=== PATIENT | male | born 1980 | race Caucasian/White ===

== ENCOUNTER → 2018-01-13 12:52 | Outpatient (CLI) | payer MEDICARE, MEDICAID, SELFPAY ==
[2018-01-13 13:36] LABS: Basophils # 0.1 K/mm3 (0-0.2); Basophils % 0.7 % (0.1-2.0); Eosinophils # 0.2 K/mm3 (0.0-0.4); Eosinophils % 2.6 % (0.1-12.0); Hemoglobin 17.1 g/dL (14.1-18.0); Lymphocytes # 1.9 K/mm3 (0.7-4.5); Lymphocytes % 24.2 K/mm3 (10-50); Mean Corpuscular HGB Conc 31.7 g/dL (31.8-35.4); Mean Corpuscular Hemoglobin 30.2 pg (27.0-31.2); Mean Corpuscular Volume 95.4 fl (80-94); Monocytes # 0.5 K/mm3 (0.1-1.0); Monocytes % 6.2 % (1.7-9.3); Neutrophils # 5.2 K/mm3 (1.8-7.8); Neutrophils % 66.4 % (37.0-80.0); Platelet Count 211 K/mm3 (142-424); Red Blood Count 5.66 M/mm3 (4.60-6.20); Red Cell Distribution Width 14.3 % (11.5-17.5); White Blood Count 7.9 K/mm3 (4.8-10.8)
[2018-01-13 14:41] LABS: Alanine Aminotransferase 22 U/L (12-78); Albumin Level 4.2 gm/dL (3.4-5.0); Albumin/Globulin Ratio 1.4 (1.1-1.8); Alkaline Phosphatase 76 U/L (46-116); Anion Gap 12.9 mEq/L (5-15); Aspartate Amino Transferase 16 U/L (15-37); Bilirubin,Total 0.8 mg/dL (0.2-1.0); Blood Urea Nitrogen 9 mg/dL (7-18); Calcium 9.2 mg/dL (8.5-10.1); Carbon Dioxide 29 mmol/L (21.0-32.0); Chloride 104 mmol/L (98-107); Chol/HDL Ratio 3.6 (1-3.5); Cholesterol 135 mg/dL (140-200); Creatinine,Serum 0.68 mg/dL (0.70-1.30); Estimated Glomerular Filt Rate 130 ml/min (>60); Free T4 (Free Thyroxine) 1.21 ng/dl (0.76-1.46); GFR (African American) 157 ML/MIN (>60); Globulin 3.1 gm/dl (1.3-3.2); Glucose 103 mg/dL (74-106); HDL Cholesterol 38 mg/dL (27-67); LDL Cholesterol 75 mg/dL (0-130); Potassium 4.9 mmoL/L (3.5-5.1); Sodium 141 mmol/L (136-145); Thyroid Stimulating Hormone 1.22 uIU/ml (0.358-3.740); Total Protein,Serum 7.3 gm/dL (6.4-8.2); Triglycerides 111 mg/dL (30-200); VLDL Cholesterol 22 mg/dL (0-40)
[2018-01-13 14:46] LABS: Hemoglobin A1C 5.5 % (0.0-7.0)
== END ==
PROVIDERS: PCP Emergency Medicine; Visit Provider Psychiatry & Neurology Psychiatry
DX: F20.9 Schizophrenia, unspecified (principal); E78.4 Other hyperlipidemia; Z79.899 Other long term (current) drug therapy
CPT/HCPCS: 36415; 80053; 80061; 83036; 84439; 84443; 85025

== ENCOUNTER → 2018-04-27 12:49 | Outpatient (CLI) | payer MEDICARE, MEDICAID, SELFPAY ==
--- NOTE | 2018-04-27 12:52 | CA_ITS ---
PROCEDURE: 2-D M-mode and color Doppler study INDICATIONS FOR THE TEST: Chest pain + COPD Heart Murmur+ Tobacco Smoking+ Palpitations Fatigue Syncope Edema+ Hypertension Diabetes Mellitus Rheumatic Fever SOB+DICKERSON Obesity Hyperlipidemia Family History HD Additional History PATIENT INFORMATION HEIGHT: 70 WEIGHT:206 GENDER: Male B/P:130/80 2-D/M-MODE INTERPRETATION: 2-D MEASUREMENTS OBSERVED VALUES IN CMS Right Ventricular Dimension (RVDd) 2.3 Interventricular Septum (Thickness)(IVsd) 1.0 Left Ventricular Internal Dimensions(LVIDd) 5.5 Left Ventricular Posterior Wall (Thickness)(LVPWd) 0.7 Aortic Root 2.8 Aortic Cusp Separation 2.3 Left Atrial Dimensions (LAD) 4.0 2D 1. Left atrium is upper limit of the normal size, left ventricle is normal size, there is no concentric left ventricular hypertrophy, visually estimated ejection fraction 55% with no obvious regional wall motion abnormality. 2. The right atrium and right ventricle are normal size and contractility. 3. The aortic valve is minimally thickened and fibrosed. 4. The mitral and tricuspid valve leaflets are grossly normal. 5. The pulmonic valve is poorly visualized. 6. No significant pericardial effusion noted. DOPPLER INTERROGATION: Doppler interrogation of the aortic, mitral and tricuspid valvular presence of mild aortic, mild mitral and tricuspid regurgitation, tricuspid and jet velocity is insufficient for calculation of the right ventricular systolic pressure, diastolic parameters are inconclusive. CONCLUSION: 1. Normal left ventricular size, preserved left ventricular systolic function, visually estimated ejection fraction 55% with no obvious regional wall motion abnormality, diastolic parameters are inconclusive. 2. Mild aortic, mild mitral and tricuspid regurgitation 3. No significant pericardial effusion noted.
== END ==
PROVIDERS: PCP Emergency Medicine; Visit Provider Emergency Medicine
DX: R01.1 Cardiac murmur, unspecified (principal)
CPT/HCPCS: 93306

== ENCOUNTER 2020-12-02 05:21 | Emergency (ER) | payer MEDICARE, MEDICAID, SELFPAY ==
[2020-12-02 05:32] VITALS: BP 132/92; PULSE 104; RESP 14; TEMP 37.1; O2SAT 97; BMI 28.1
[2020-12-02 06:00] VITALS: BP 127/89; PULSE 99; RESP 18; O2SAT 95
--- NOTE | 2020-12-02 06:02 | HMH.EDUROGM ---
ED Disposition Clinical Impression: Inguinal hernia Qualifiers: Obstruction and gangrene presence: without obstruction or gangrene Laterality: bilateral Recurrence: non-recurrent Qualified Code(s): K40.20 - Bilateral inguinal hernia, without obstruction or gangrene, not specified as recurrent Disposition: Left Without Being Seen Condition on Discharge: Good Instructions: DI for Groin Hernia Additional Instructions: see surg as op Referrals: Angel Lam MD [Primary Care Provider] - - Critical Care Critical Care Time: No Attestation: On 12/02/20, the high probability of a clinically significant, sudden or life threatening deterioration of the following system(s) required my full and direct attention, intervention and personal management. The time I documented below is in addition to time spent performing reported procedures but includes the following listed in this critical care notation. Medical Decision Making - Medical Records Medical records reviewed: Yes: I reviewed the patient's medical records. - Earnest Inquiry Pt receiving controlled substance: No Vital Signs: 12/02/20 05:32 12/02/20 06:00 12/02/20 07:00 Temperature 98.8 F Temperature Source Oral Pulse Rate [Right] 104 H 99 H 95 H Respiratory Rate 14 18 17 Blood Pressure [Right Arm] 132/92 H 127/89 136/93 H Blood Pressure Mean [Right Arm] 105 101 107 Blood Pressure Source [Right Arm] Automatic Cuff Automatic Cuff Automatic Cuff Blood Pressure Position [Right Arm] Sitting Supine Sitting 02 Sat by Pulse Oximetry 97 95 97 Oxygen Delivery Method Room Air Room Air Room Air - Lab Data Lab results reviewed: Yes: I reviewed the patient's lab results. Lab Results 12/02/20 05:14: Urine Color Yellow, Urine Appearance Clear, Urine pH 6.5, Ur Specific [place] 1.010, Urine Protein Negative, Urine Glucose (UA) Negative, Urine Ketones Trace, Urine Blood Negative, Urine Nitrate Negative, Urine Bilirubin Negative, Urine Urobilinogen 1.0, Ur Leukocyte Esterase Negative, Urine WBC 3-5, Ur Squamous Epith Cells 3-5 12/02/20 06:15: WBC 11.4 H, RBC 5.56, Hgb 16.8, Hct 51.0, MCV 91.7, MCH 30.2, MCHC 32.9, RDW 14.7, Plt Count 203, MPV 8.3, Neut % (Auto) 67.4, Lymph % (Auto) 24.3, [place] % (Auto) 6.3, Eos % (Auto) 1.4, Baso % (Auto) 0.5, Neut # (Auto) 7.7, Lymph # (Auto) 2.8, [place] # (Auto) 0.7, Eos # (Auto) 0.2, Baso # (Auto) 0.1 12/02/20 06:15: Sodium 139, Potassium 4.1, Chloride 106, Carbon Dioxide 25, Anion Gap 12.1, BUN 5 L, Creatinine 0.90, Estimated Creat Clear 134, Estimated GFR 93, Est GFR ( Amer) 112, Glucose 121 H, Calcium 9.9, Total Bilirubin 0.7, AST 25, ALT 18, Alkaline Phosphatase 94, C-Reactive Protein 3.9, Total Protein 8.2, Albumin 5.0, Globulin 3.2, Albumin/Globulin Ratio 1.6 12/02/20 06:15: Plasma/Serum Alcohol < 10 Result diagrams: 12/02/20 06:15 12/02/20 06:15 Orders (Tests/Meds): ED MEDICATIONS Discontinued Medications Generic Name Dose Route Start Last Admin Trade Name Freq PRN Reason Stop Dose Admin Iopamidol 75 ml 12/02/20 07:22 12/02/20 07:22 Iopamidol-370 (76%);100ml Bottle IV 12/02/20 07:23 75 ml ONCE ONE Administration Sodium Chloride 10 ml 12/02/20 07:22 12/02/20 07:22 Sodium Chloride 0.9% 10ml Syr (Rad Only) IV 12/02/20 07:23 10 ml ONCE ONE Administration ORDERS Category Date Time Status CT abdomen pelvis w con Stat Cat Scan 12/02/20 06:11 Taken C-Reactive Protein Stat Lab 12/02/20 06:15 Results CMP [Comprehensive Metabolic Panel] Stat Lab 12/02/20 06:15 Results ESR [Erythrocyte Sedimentation Rate] Stat Lab 12/02/20 06:15 Received Procalcitonin Stat Lab 12/02/20 06:15 Received T4 (Thyroxine) Stat Lab 12/02/20 06:15 Results TSH [Thyroid Stimulating Hormone] Stat Lab 12/02/20 06:15 Results - CT Data CT Scan: Abdomen, Pelvis Time Received: 07:[address] Reviewed: Yes: I have viewed the radiologist's interpretation Preliminary Findings: Abnormal (see report ) [facility]
[2020-12-02 06:03] LABS: Microscopic, Urine URINE MICROSCOPIC (MICROSCOPIC)
--- NOTE | 2020-12-02 06:11 | CT_ITS ---
PROCEDURE: CT ABDOMEN PELVIS W CON CLINICAL INDICATION: abd pain Abdominal pain, swollen scrotum worsening COMPARISON: No exams were available for comparison TECHNIQUE: IV Contrast: 75ML Isovue 370 Oral Contrast None Axial images obtained with sagittal and coronal reformats. All CT scans at the facility use one or more dose reduction, viz: automated exposure control, ma/kV adjustment per patient size (including targeted exams where dose is matched to indication, i.e. head), or iterative reconstruction technique. FINDINGS: LOWER THORAX: Parenchymal opacity right middle lobe anteriorly and may be due to an area of scarring. There is a 13 mm subpleural nodule in the right lower lobe posteriorly. ABDOMEN & PELVIS: The liver, spleen, adrenal glands, pancreas and kidneys show no acute finding. There is a simple cyst in the left kidney at 11 mm. No renal or ureteral calculi. No hydronephrosis. Unremarkable appearing gallbladder. The bowel gas pattern is nonspecific with fluid-filled loops of small bowel with a few air-fluid levels. The bowel loops however do not appear distended. There is a mild amount of retained colonic feces. There are large bilateral inguinal hernias. The right inguinal hernia contains small bowel in the left inguinal hernia contains large bowel. Some of the bowel loops within the right inguinal hernia do contain fluid. No evidence of appendicitis or diverticulitis. Urinary bladder is decompressed. No acute bony findings. 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 Small nodes are present in the inguinal area on both sides left greater than right. There are few small retroperitoneal lymph nodes as well. IMPRESSION: 1. Large bilateral inguinal hernias containing bowel as described above. 2. No definite intestinal obstruction. The bowel gas pattern is nonspecific with some fluid-filled loops of small bowel with some scattered air-fluid levels which could be due to enteritis. 3. 13 mm pleural-based nodule in the right lower lobe. If there are no old exams for comparison then, would suggest PET-CT for further evaluation. Follow-up is recommended. Dictated by: Eric Gonzalez MD 12/02/2020 08:20 Eric Gonzalez MD in [facility] 12/02/2020 08:20
[2020-12-02 06:18] LABS: Appearance,Urine CLEAR (Clear); Bilirubin,Urine Negative (Negative); Blood, Urine Negative (Negative); Color,Urine YELLOW (Yellow); Glucose,Urine (UA) Negative (Negative); Ketones,Urine TRACE (Negative); Leukocyte Esterase,Urine Negative (Negative); Nitrate,Urine Negative (Negative); PH,Urine 6.5 (5.0-8.5); Protein,Urine Negative (Negative)
[2020-12-02 07:00] VITALS: BP 136/93; PULSE 95; RESP 17; O2SAT 97
[2020-12-02 07:32] LABS: Basophils # 0.1 K/mm3 (0-0.2); Basophils % 0.5 % (0.1-2.0); Chloride 106 mmol/L (98-107); Eosinophils # 0.2 K/mm3 (0.0-0.4); Eosinophils % 1.4 % (0.1-12.0); Hemoglobin 16.8 g/dL (14.1-18.0); Lymphocytes # 2.8 K/mm3 (0.7-4.5); Lymphocytes % 24.3 % (10-50); Mean Corpuscular HGB Conc 32.9 g/dL (31.8-35.4); Mean Corpuscular Hemoglobin 30.2 pg (27.0-31.2); Mean Corpuscular Volume 91.7 fl (80-94); Mean Platelet Volume 8.3 fl (7.4-10.4); Monocytes # 0.7 K/mm3 (0.1-1.0); Monocytes % 6.3 % (1.7-9.3); Neutrophils # 7.7 K/mm3 (1.8-7.8); Neutrophils % 67.4 % (37.0-80.0); Platelet Count 203 K/mm3 (142-424); Potassium 4.1 mmoL/L (3.5-5.1); Red Blood Count 5.56 M/mm3 (4.60-6.20); Red Cell Distribution Width 14.7 % (11.5-17.5); Sodium 139 mmol/L (136-145); White Blood Count 11.4 K/mm3 (4.8-10.8)
[2020-12-02 07:35] LABS: Alanine Aminotransferase 18 U/L (12-78); Albumin/Globulin Ratio 1.6 (1.1-1.8); Alkaline Phosphatase 94 U/L (38-126); Anion Gap 12.1 mEq/L (5-15); Aspartate Amino Transferase 25 U/L (17-59); Bilirubin,Total 0.7 mg/dl (0.2-1.3); Blood Urea Nitrogen 5 mg/dl (9-20); Carbon Dioxide 25 mmol/L (22.0-30.0); Creatinine Clearance Estimated 134 mL/min (50-200); Estimated Glomerular Filt Rate 93 ml/min (>60); GFR (African American) 112 ML/MIN (>60); Globulin 3.2 g/dL (1.3-3.2); Total Protein,Serum 8.2 g/dl (6.3-8.2)
[2020-12-02 07:36] LABS: Calcium 9.9 mg/dl (8.4-10.2); Glucose 121 mg/dl (74-100)
[2020-12-02 07:37] LABS: Ethyl Alcohol < 10 mg/dl (0-10)
[2020-12-02 07:41] LABS: C-Reactive Protein 3.9 mg/L (0-4)
--- NOTE | 2020-12-02 07:44 | PC.NURSE ---
Pt come out of his room and started cursing at staff, asking if he could leave, advised pt he was going to be getting a US of his testicles. Pt became even more upset and cursing. Went into pt room with Dr. Lam while he was trying to explain to pt he continued to curse staff. Patient advised he was going back to [facility]. IV was removed and bandaged. Pt gathered his belongings and was still cursing and yelling at staff. Dr. Lam advised pt he would call [facility] and speak with them. PT walked out the door at this time. Dr. Lam notified [facility].
[2020-12-02 07:55] LABS: Procalcitonin 0.053 ng/mL (0.0-2.0); T4 (Thyroxine) 12.4 ug/dl (5.53-11.0)
[2020-12-02 07:56] VITALS: BP 136/93; PULSE 95; RESP 16; TEMP 37.1; O2SAT 98
[2020-12-02 08:02] LABS: Erythrocyte Sedimentation Rate 4 mm/hr (0-15)
[2020-12-02 08:09] LABS: Thyroid Stimulating Hormone 4.86 uIU/mL (0.465-4.68)
== END 2020-12-02 07:58 | disposition left against medical advice (07) ==
PROVIDERS: Emergency Provider Emergency Medicine; PCP Emergency Medicine
DX: K40.20 Bilateral inguinal hernia, without obstruction or gangrene, not specified as recurrent (principal); F41.8 Other specified anxiety disorders; E03.9 Hypothyroidism, unspecified; Z79.899 Other long term (current) drug therapy
CPT/HCPCS: 74177; 80053; 81001; 84145; 84436; 84443; 85025; 85651; 86140; 99283; Q9967

== ENCOUNTER → 2021-01-01 10:01 | Outpatient (CLI) | payer MEDICARE, MEDICAID, SELFPAY ==
[2021-01-01 10:04] LABS: Microscopic, Urine URINE MICROSCOPIC (MICROSCOPIC)
[2021-01-01 10:45] LABS: Appearance,Urine CLEAR (Clear); Basophils # 0.1 K/mm3 (0-0.2); Basophils % 0.5 % (0.1-2.0); Bilirubin,Urine Negative (Negative); Blood, Urine Negative (Negative); Color,Urine YELLOW (Yellow); Eosinophils # 0.3 K/mm3 (0.0-0.4); Eosinophils % 2.6 % (0.1-12.0); Glucose,Urine (UA) Negative (Negative); Hematocrit 51.2 % (42.0-52.0); Hemoglobin 16.8 g/dL (14.1-18.0); Ketones,Urine Negative (Negative); Leukocyte Esterase,Urine Negative (Negative); Lymphocytes # 2.2 K/mm3 (0.7-4.5); Lymphocytes % 21.3 % (10-50); Mean Corpuscular HGB Conc 32.8 g/dL (31.8-35.4); Mean Corpuscular Hemoglobin 29.6 pg (27.0-31.2); Mean Corpuscular Volume 90.2 fl (80-94); Mean Platelet Volume 7.8 fl (7.4-10.4); Monocytes # 0.6 K/mm3 (0.1-1.0); Monocytes % 6.1 % (1.7-9.3); Neutrophils # 7.1 K/mm3 (1.8-7.8); Neutrophils % 69.4 % (37.0-80.0); Nitrate,Urine Negative (Negative); PH,Urine 7.5 (5.0-8.5); Platelet Count 208 K/mm3 (142-424); Protein,Urine Negative (Negative); Red Blood Count 5.67 M/mm3 (4.60-6.20); Red Cell Distribution Width 14.2 % (11.5-17.5); White Blood Count 10.3 K/mm3 (4.8-10.8)
[2021-01-01 11:00] LABS: Anion Gap 15.6 mEq/L (5-15); Blood Urea Nitrogen 5 mg/dl (9-20); Calcium 9.5 mg/dl (8.4-10.2); Carbon Dioxide 23 mmol/L (22.0-30.0); Chloride 104 mmol/L (98-107); Estimated Glomerular Filt Rate 106 ml/min (>60); GFR (African American) 128 ML/MIN (>60); Glucose 95 mg/dl (74-100); Potassium 4.6 mmoL/L (3.5-5.1); Sodium 138 mmol/L (136-145)
[2021-01-01 11:06] LABS: WBC,Urine Occasional #/hpf (0-3)
[2021-01-01 11:21] LABS: Coronavirus 19 IgG Antibody Positive (Negative); Coronavirus 19 IgM Antibody Negative (Negative)
== END ==
PROVIDERS: Visit Provider Surgery
DX: K46.9 Unspecified abdominal hernia without obstruction or gangrene (principal); K40.90 Unilateral inguinal hernia, without obstruction or gangrene, not specified as recurrent; Z01.818 Encounter for other preprocedural examination; Z20.822 Contact with and (suspected) exposure to COVID-19
CPT/HCPCS: 36415; 80048; 81001; 85025; 86328

== ENCOUNTER 2021-01-03 07:12 | Day surgery (SDC) | payer MEDICARE, MEDICAID, SELFPAY ==
--- NOTE | 2021-01-03 07:47 | SUR.PREOP ---
Pt verbalizing indecision about wanting to have procedure today. Dr. Brewster spoke with pt and decision made to cancel surgery today and reassess in office at pt's desire. Will call [facility] in office to set up appt.
--- NOTE | 2021-01-03 07:57 | SUR.PREOP ---
pt to see dr. Brewster in office 01/22/21 @ 0568. pt and caregiver verbalized understanding. Pt walked out of Pre-op without difficutly.
== END 2021-01-03 07:57 ==
LOC: OR 07:14
PROVIDERS: PCP Emergency Medicine; Visit Provider Surgery
PROC: (CPT 49650; principal; 2021-01-03 09:30)
DX: Z53.20 Procedure and treatment not carried out because of patient's decision for unspecified reasons (principal); K40.20 Bilateral inguinal hernia, without obstruction or gangrene, not specified as recurrent
CPT/HCPCS: 49650

== ENCOUNTER 2021-05-02 12:56 | Emergency (ER) | payer MEDICARE, MEDICAID, SELFPAY ==
[2021-05-02 12:56] VITALS: BP 149/71; PULSE 76; RESP 18; TEMP 36.7; O2SAT 97; BMI 26.5
[2021-05-02 13:00] VITALS: BP 149/99; PULSE 76; O2SAT 96
--- NOTE | 2021-05-02 13:21 | PC.NURSE ---
PATIENT POC GLUCOSE: 103
--- NOTE | 2021-05-02 13:23 | PC.NURSE ---
Requested US from pt
[2021-05-02 13:27] LABS: POC Glucose,Bedside 102 (70-110)
[2021-05-02 13:30] VITALS: BP 150/102; PULSE 76; O2SAT 97
--- NOTE | 2021-05-02 13:46 | PC.NURSE ---
Maria Luz from [facility] made aware patient is wanting to leave AMA. Maria Luz stated they will send transportation for him. Patient made that he will need to remain in ED room until transportation arrives
--- NOTE | 2021-05-02 13:51 | PC.NURSE ---
Patient signed AMA form at this time. Patient will remain in room until transportation arrives from [facility]
[2021-05-02 13:55] VITALS: BP 134/71; PULSE 87; RESP 16; TEMP 36.8; O2SAT 97
--- NOTE | 2021-05-02 14:00 | HMH.EDGENADL ---
ED Disposition Clinical Impression: Anxiety, Encounter for medical screening examination Disposition: Left Against Medical Advice Condition on Discharge: Good Instructions: Dizziness, Nonvertigo Referrals: Provider,Referral, [Primary Care Provider] - - Critical Care Critical Care Time: No Attestation: On 05/02/21, the high probability of a clinically significant, sudden or life threatening deterioration of the following system(s) required my full and direct attention, intervention and personal management. The time I documented below is in addition to time spent performing reported procedures but includes the following listed in this critical care notation. Medical Decision Making - Medical Records Medical records reviewed: Yes: I reviewed the patient's medical records. - Earnest Inquiry Pt receiving controlled substance: No Vital Signs: 05/02/21 12:56 05/02/21 13:00 05/02/21 13:30 Temperature 98.0 F Temperature Source Oral Pulse Rate 76 76 Pulse Rate [Right] 76 Respiratory Rate 18 Blood Pressure 149/99 H 150/102 H Blood Pressure [Right Arm] 149/71 H Blood Pressure Mean 117 113 Blood Pressure Mean [Right Arm] 97 02 Sat by Pulse Oximetry 97 96 97 Oxygen Delivery Method Room Air - Lab Data Lab Results 05/02/21 13:20: POC Glucose 102 Orders (Tests/Meds): ED MEDICATIONS Discontinued Medications Generic Name Dose Route Start Last Admin Trade Name Freq PRN Reason Stop Dose Admin Hydroxyzine Pamoate 25 mg 05/02/21 13:16 05/02/21 13:22 Hydroxyzine Pamoate 25mg Capsule PO 05/02/21 13:17 25 mg ONCE ONE Administration ORDERS Category Date Time Status POC Glucose,Bedside Stat Lab 05/02/21 13:15 Ordered Urinalysis and Microscopic Stat Lab 05/02/21 13:15 Ordered - Reevaluation(s) Time: 14:02 Reevaluation #1: On reevaluation, the patient is feeling much better. Remains asymptomatic. Repeat exam is normal. Patient states that he just needs to go right now. I would like to obtain the patient's urine. However he is declining to provide this at this time. He wants to leave AGAINST MEDICAL ADVICE. Patient is alert and appropriate. Full decision-making capability. Medical Decision Narrative: 40-year-old male presented to the emergency department for medical evaluation. Patient denies any symptoms at this time. States that he just wanted his morning dose of medication because he did not receive it. Neurologic exam is normal. Patient will be treated symptomatically. Work-up initiated. General Adult HPI - General Chief complaint: Dizziness Stated complaint: not feeling well, hasn't taken medicine yet today Time Seen by Provider: 05/02/21 13:00 Mode of Arrival: EMS Limitations: No Limitations Description of Symptoms (Recalled from ER Triage Doc. by RN): Patient reports he woke up this morning with upper abdominal cramps. Pain reports the cramping has since went away. Patient also reports he is dizzy but stated in ED triage, I forgot to take my medicine this morning and maybe that is why I am dizzy. - History of Present Illness HPI narrative: 40-year-old male presented to the emergency department for medical screening evaluation. The patient is a member at assisted living facility today. He states that he did not get his morning medication and was out for a walk. The patient started feeling lightheaded and states that he felt abnormal because he did not have his medicines. He called 911 at this time. Evaluation in the emergency department, the patient is feeling fine. He denies any headache or change in vision. No focal weakness. No chest pain or shortness of breath no abdominal pain or vomiting. No diarrhea. Denies any suicidal or homicidal ideation. - Related Data Home Medications Medication Instructions Recorded Confirmed asenapine maleate 10 mg sublingual 10 mg SUBLINGUAL BID 10/27/17 12/11/20 tablet propranolol 2
== END 2021-05-02 14:01 | disposition left against medical advice (07) ==
PROVIDERS: Emergency Provider Emergency Medicine
DX: F41.9 Anxiety disorder, unspecified (principal); F17.210 Nicotine dependence, cigarettes, uncomplicated
CPT/HCPCS: 82962; 99282

== ENCOUNTER 2021-09-13 09:24 | Emergency (ER) | payer MEDICARE, MEDICAID, SELFPAY ==
[2021-09-13 09:30] VITALS: BP 135/88; PULSE 69; RESP 20; TEMP 36.9; O2SAT 98; BMI 25.1
--- NOTE | 2021-09-13 09:41 | XR_ITS ---
PROCEDURE INFORMATION: Exam: XR Chest Exam date and time: 09/13/2021 9:41 AM Age: 41 years old Clinical indication: Cough and dyspnea; Patient HX: Cough and SOA TECHNIQUE: Imaging protocol: XR of the chest. Views: 1 view. COMPARISON: CT ABDOMEN PELVIS W CON 12/02/2020 6:31 AM FINDINGS: Lungs: No focal airspace disease. Pleural spaces: Unremarkable. No pleural effusion. No pneumothorax. Heart/Mediastinum: Cardiomediastinal silhouette is within normal limits. Bones/joints: Unremarkable. IMPRESSION: No acute cardiopulmonary abnormality.
[2021-09-13 09:43] VITALS: BMI 25.1
[2021-09-13 10:05] LABS: Basophils # 0.1 K/mm3 (0-0.2); Basophils % 1.1 % (0.1-2.0); Eosinophils # 0.2 K/mm3 (0.0-0.4); Eosinophils % 2.5 % (0.1-12.0); Hemoglobin 16.2 g/dL (14.1-18.0); Lymphocytes # 2.3 K/mm3 (0.7-4.5); Lymphocytes % 34.7 % (10-50); Mean Corpuscular HGB Conc 33.7 g/dL (31.8-35.4); Mean Corpuscular Hemoglobin 30.5 pg (27.0-31.2); Mean Corpuscular Volume 90.5 fl (80-94); Mean Platelet Volume 7.4 fl (7.4-10.4); Monocytes # 0.5 K/mm3 (0.1-1.0); Monocytes % 6.7 % (1.7-9.3); Neutrophils # 3.6 K/mm3 (1.8-7.8); Platelet Count 211 K/mm3 (142-424); Red Blood Count 5.31 M/mm3 (4.60-6.20); Red Cell Distribution Width 14.5 % (11.5-17.5); White Blood Count 6.6 K/mm3 (4.8-10.8)
[2021-09-13 10:05] LABS: Microscopic, Urine URINE MICROSCOPIC (MICROSCOPIC)
[2021-09-13 10:06] LABS: Chloride 101 mmol/L (98-107); Sodium 132 mmol/L (136-145)
[2021-09-13 10:08] LABS: Alanine Aminotransferase 14 U/L (12-78); Aspartate Amino Transferase 25 U/L (17-59); Blood Urea Nitrogen 4 mg/dl (9-20); Creatinine Clearance Estimated 178 mL/min (50-200); Estimated Glomerular Filt Rate 147 ml/min (>60); GFR (African American) 178 ML/MIN (>60)
[2021-09-13 10:08] LABS: Appearance,Urine CLEAR (Clear); Bilirubin,Urine Negative (Negative); Blood, Urine Negative (Negative); Color,Urine YELLOW (Yellow); Glucose,Urine (UA) Negative (Negative); Ketones,Urine Negative (Negative); Leukocyte Esterase,Urine Negative (Negative); Nitrate,Urine Negative (Negative); Protein,Urine Negative (Negative); Specific Gravity, Urine 1.015 (1.005-1.030); Urobilinogen,Urine 0.2 EU/dl (0.2)
[2021-09-13 10:09] LABS: Albumin Level 4.5 g/dl (3.5-5.0); Albumin/Globulin Ratio 1.7 (1.1-1.8); Alkaline Phosphatase 93 U/L (38-126); Bilirubin,Total 0.6 mg/dl (0.2-1.3); Calcium 9.3 mg/dl (8.4-10.2); Carbon Dioxide 22 mmol/L (22.0-30.0); Globulin 2.7 g/dL (1.3-3.2); Glucose 119 mg/dl (74-100); Total Protein,Serum 7.2 g/dl (6.3-8.2)
--- NOTE | 2021-09-13 10:28 | HMH.EDGENADL ---
ED Disposition Clinical Impression: Bronchitis Migraine Qualifiers: Migraine type: other Status migrainosus presence: without status migrainosus Intractability: not intractable Qualified Code(s): G43.809 - Other migraine, not intractable, without status migrainosus Disposition: Home, Self-Care Condition on Discharge: Good Instructions: DI for Acute Bronchitis Referrals: Angel Lam MD [Primary Care Provider] - - Critical Care Critical Care Time: No Attestation: On 09/13/21, the high probability of a clinically significant, sudden or life threatening deterioration of the following system(s) required my full and direct attention, intervention and personal management. The time I documented below is in addition to time spent performing reported procedures but includes the following listed in this critical care notation. Medical Decision Making - Medical Records Medical records reviewed: Yes: I reviewed the patient's medical records. - Earnest Inquiry Pt receiving controlled substance: No Vital Signs: 09/13/21 09:30 Temperature 98.4 F Temperature Source Oral Pulse Rate [Left Radial] 69 Respiratory Rate 20 Blood Pressure [Right Arm] 135/88 Blood Pressure Mean [Right Arm] 103 02 Sat by Pulse Oximetry 98 Oxygen Delivery Method Room Air - Lab Data Lab Results 09/13/21 09:42: Urine Color Yellow, Urine Appearance Clear, Urine pH 7.0, Ur Specific [place] 1.015, Urine Protein Negative, Urine Glucose (UA) Negative, Urine Ketones Negative, Urine Blood Negative, Urine Nitrate Negative, Urine Bilirubin Negative, Urine Urobilinogen 0.2, Ur Leukocyte Esterase Negative 09/13/21 09:48: WBC 6.6, RBC 5.31, Hgb 16.2, Hct 48.0, MCV 90.5, MCH 30.5, MCHC 33.7, RDW 14.5, Plt Count 211, MPV 7.4, Neut % (Auto) 55.0, Lymph % (Auto) 34.7, [place] % (Auto) 6.7, Eos % (Auto) 2.5, Baso % (Auto) 1.1, Neut # (Auto) 3.6, Lymph # (Auto) 2.3, [place] # (Auto) 0.5, Eos # (Auto) 0.2, Baso # (Auto) 0.1 09/13/21 09:48: Sodium 132 L, Potassium 4.0, Chloride 101, Carbon Dioxide 22, Anion Gap 13.0, BUN 4 L, Creatinine 0.60 L, Estimated Creat Clear 178, Estimated GFR 147, Est GFR ( Amer) 178, Glucose 119 H, Calcium 9.3, Total Bilirubin 0.6, AST 25, ALT 14, Alkaline Phosphatase 93, Total Protein 7.2, Albumin 4.5, Globulin 2.7, Albumin/Globulin Ratio 1.7 Result diagrams: 09/13/21 09:48 09/13/21 09:48 Orders (Tests/Meds): ORDERS Category Date Time Status XR chest portable Stat Exams 09/13/21 09:41 Taken Urinalysis and Microscopic Stat Lab 09/13/21 09:42 Results - Radiology Data #1 Image(s): Chest Image Reviewed: Yes I reviewed the patient's radiology results, Yes I reviewed the patient's radiology image Preliminary Findings: Normal/NAD - Reevaluation(s) Time: 10:32 Reevaluation #1: On reevaluation, patient is feeling better. Again no respiratory distress or difficulty breathing. Patient was counseled on smoking cessation. Please follow-up with PCP in 48 hours. Given strict return precautions. Verbalized understanding. Medical Decision Narrative: 41-year-old male presenting with multiple review of symptoms. Overall the patient appears to be fine there is no respiratory distress or wheezing on examination. Is not coughing. Hemodynamically stable. Work-up initiated. General Adult HPI - General Chief complaint: Nausea/Vomiting/Diarrhea Stated complaint: soa, blurry eyesight, headache Time Seen by Provider: 09/13/21 09:35 Mode of Arrival: Ambulatory Limitations: No Limitations Description of Symptoms (Recalled from ER Triage Doc. by RN): pt to ed c/o nausea and sob x3 days. pt states he is not nauseous on arrival but was last night. pt denies pain. - History of Present Illness HPI narrative: Is a 41-year-old male presented to the emergency department with multiple complaints. He states that he has had some cough and shortness of breath for the last 3 days. Nonproductive in nature. Is also has some n
[2021-09-13 10:29] LABS: Squamous Epithelial Cell,Urine Occasional #/hpf (0-5)
[2021-09-13 10:41] VITALS: BP 136/93; PULSE 73; RESP 20; TEMP 36.9; O2SAT 97
== END 2021-09-13 10:43 | disposition home or self-care (01) ==
PROVIDERS: Emergency Provider Emergency Medicine; PCP Emergency Medicine
DX: J20.9 Acute bronchitis, unspecified (principal); G43.809 Other migraine, not intractable, without status migrainosus; F17.210 Nicotine dependence, cigarettes, uncomplicated
CPT/HCPCS: 71045; 80053; 81001; 85025; 99282

== ENCOUNTER 2022-07-11 14:50 | Emergency (ER) | payer MEDICARE, MEDICAID, SELFPAY ==
[2022-07-11 14:52] VITALS: BP 113/76; PULSE 66; RESP 17; TEMP 36.7; O2SAT 95; BMI 19.8
--- NOTE | 2022-07-11 14:54 | HMH.EDLOEX ---
Discharge Plan Disposition Patient Disposition: Home, Self-Care Condition: Fair Prescriptions Prescriptions: New levofloxacin 500 mg tablet 500 mg PO DAILY 7 Days Qty: 7 0RF No Action asenapine maleate [Saphris (black morfin)] 10 mg tablet, sublingual 10 mg SUBLINGUAL BID propranolol 20 mg tablet 20 mg PO BID trazodone 100 mg tablet 100 mg PO QHS PRN (Reason: Sleep) escitalopram oxalate [Lexapro] 20 mg tablet 20 mg PO DAILY hydroxyzine pamoate 25 mg capsule 25 mg PO TID loratadine [Claritin] 10 mg tablet 10 mg PO DAILY lorazepam 1 mg tablet 1 mg PO Q6H PRN (Reason: anxiety) Qty: 90 2RF Activity Restrictions/Add. Instructions Additional Instructions/Restrictions: Follow-up with your primary care physician within 48 hours. Return immediately to the emergency department if symptoms worsen. Clinical Impressions Clinical Impression: Cellulitis of foot Instructions Patient Instructions: Cellulitis Discharge ED Provider: Aleks Carbal Lower Extremity Injury HPI General Chief Complaint: Skin/Abscess/Foreign Body Stated Complaint: infection in foot Time Seen by Provider: 07/11/22 14:54 Mode of Arrival: EMS Source of Information: Patient and EMS History of Present Illness HPI Narrative: The patient presents to the emergency department from a psychiatric facility via EMS complaining of left-sided foot swelling and pain. The patient denies being a diabetic. He states that the symptoms began 2 days ago. Related Data Home Medications Medication Instructions Recorded Confirmed asenapine maleate 10 mg sublingual 10 mg sublingual BID anxiety/schizo 10/27/17 12/11/20 tablet (Saphris (black morfin)) propranolol 20 mg tablet 20 mg PO BID Hypertension 10/27/17 12/11/20 trazodone 100 mg tablet 100 mg PO QHS PRN Sleep 10/27/17 12/11/20 escitalopram oxalate 20 mg tablet 20 mg PO DAILY Depression 03/16/18 12/11/20 (Lexapro) hydroxyzine pamoate 25 mg capsule 25 mg PO TID 03/10/19 12/11/20 loratadine 10 mg tablet (Claritin) 10 mg PO DAILY 03/10/19 12/11/20 Previous Rx's Medication Instructions Recorded lorazepam 1 mg tablet 1 mg PO Q6H PRN anxiety #90 tabs 12/06/21 levofloxacin 500 mg tablet 500 mg PO DAILY Cellulitis of left 07/11/22 foot 7 days #7 tabs Allergies Allergy/AdvReac Type Severity Reaction Status Date / Time No Known Allergies [facility]20 10[facility] Social History Smoking Status: Never smoker alcohol intake: current substance use type: denies use current occupational status: unemployed Travel in the last 8 weeks: None ROS Obtained: Yes All systems reviewed & no additional complaints except as documented Physical Exam General General appearance: alert Head Head exam: atraumatic Eye Eye exam: Present normal appearance ENT ENT exam: Present normal exam Neck Neck exam: Present normal inspection and full ROM; Absent tenderness or meningismus Chest Chest inspection: Present normal inspection and symmetric chest wall rise; Absent tenderness Respiratory Respiratory exam: Present normal lung sounds bilaterally; Absent respiratory distress or accessory muscle use Cardiovascular Cardiovascular exam: Present regular rate, normal rhythm and normal heart sounds Abdominal Exam Abdominal exam: Present soft and normal bowel sounds; Absent distention, tenderness, heel tap sign, Jain's sign, Rovsing's sign, tenderness at McBurney's Point or mass Extremities Exam Extremities exam: Present full ROM and other (There is swelling and erythema of the left foot. The foot is neurovascularly intact. There is an ulcer on the sole of the distal left foot.); Absent normal inspection Back Exam Back exam: Present normal inspection; Absent CVA tenderness (R) or CVA tenderness (L) Neurological Exam Neurological exam: Present alert and oriented X3 Psychiatric Psychiatric exam
--- NOTE | 2022-07-11 15:05 | XR_ITS ---
PROCEDURE INFORMATION: Exam: XR Left Foot Exam date and time: 07/11/2022 3:22 PM Age: 42 years old Clinical indication: Swelling, leg or foot; Additional info: Swelling left foot TECHNIQUE: Imaging protocol: Radiologic exam of the Left foot. Views: 3 or more views. COMPARISON: No relevant prior studies available. FINDINGS: Bones/joints: There is no evidence of acute fracture. There is no evidence of joint malalignment or dislocation. Soft tissues: Moderate dorsal soft tissue swelling. IMPRESSION: 1. Moderate dorsal soft tissue swelling. 2. No evidence of acute fracture. 3. No evidence of acute dislocation.
--- NOTE | 2022-07-11 15:10 | PC.NURSE ---
pt to xr
[2022-07-11 15:18] LABS: Basophils # 0.1 K/mm3 (0-0.2); Basophils % 0.8 % (0.1-2.0); Eosinophils # 0.2 K/mm3 (0.0-0.4); Eosinophils % 1.6 % (0.1-12.0); Hematocrit 41.5 % (42.0-52.0); Hemoglobin 13.8 g/dL (14.1-18.0); Lymphocytes # 1.8 K/mm3 (0.7-4.5); Mean Corpuscular HGB Conc 33.3 g/dL (31.8-35.4); Mean Corpuscular Hemoglobin 29.9 pg (27.0-31.2); Mean Corpuscular Volume 89.5 fl (80-94); Mean Platelet Volume 8.3 fl (7.4-10.4); Monocytes # 0.8 K/mm3 (0.1-1.0); Monocytes % 8.5 % (1.7-9.3); Neutrophils # 6.2 K/mm3 (1.8-7.8); Neutrophils % 69.1 % (37.0-80.0); Platelet Count 208 K/mm3 (142-424); Red Blood Count 4.64 M/mm3 (4.60-6.20); Red Cell Distribution Width 14.8 % (11.5-17.5)
[2022-07-11 15:19] LABS: Chloride 96 mmol/L (98-107); Potassium 4.4 mmoL/L (3.5-5.1); Sodium 131 mmol/L (136-145)
--- NOTE | 2022-07-11 15:21 | PC.NURSE ---
pt back from rad
[2022-07-11 15:22] LABS: Alanine Aminotransferase 14 U/L (12-78); Albumin Level 3.9 g/dl (3.5-5.0); Albumin/Globulin Ratio 1.4 (1.1-1.8); Alkaline Phosphatase 104 U/L (38-126); Anion Gap 13.4 mEq/L (5-15); Aspartate Amino Transferase 20 U/L (17-59); Bilirubin,Total 0.6 mg/dl (0.2-1.3); Blood Urea Nitrogen 6 mg/dl (9-20); Calcium 8.2 mg/dl (8.4-10.2); Carbon Dioxide 26 mmol/L (22.0-30.0); Creatinine Clearance Estimated 131 mL/min (50-200); Estimated Glomerular Filt Rate 146 ml/min (>60); GFR (African American) 177 ML/MIN (>60); Globulin 2.7 g/dL (1.3-3.2); Glucose 102 mg/dl (74-100); Total Protein,Serum 6.6 g/dl (6.3-8.2)
[2022-07-11 15:23] LABS: Lactic Acid 0.6 mmol/L (0.7-2.1)
--- NOTE | 2022-07-11 15:52 | PC.NURSE ---
pt medicated per MAR. no needs voiced
--- NOTE | 2022-07-11 16:01 | PC.NURSE ---
pt back from rad
--- NOTE | 2022-07-11 16:28 | PC.NURSE ---
pt refusing to receive second abx and wants to leave [facility]. explained the importance of abx and risks of leaving the hospital. notified
--- NOTE | 2022-07-11 16:35 | PC.NURSE ---
spoke to pt and discussed risks of leaving [facility]. pt still wanting to leave. [facility] form signed, IV d/c and sangeeta called to bulk picker pt.
--- NOTE | 2022-07-11 16:41 | PC.NURSE ---
pt agreeable to taking PO abx. new orders given by
[2022-07-11 17:39] VITALS: BP 128/89; PULSE 87; RESP 18; TEMP 37; O2SAT 99
== END 2022-07-11 17:40 | disposition home or self-care (01) ==
PROVIDERS: Emergency Provider Emergency Medicine; PCP Emergency Medicine
DX: L03.116 Cellulitis of left lower limb (principal); L97.529 Non-pressure chronic ulcer of other part of left foot with unspecified severity
CPT/HCPCS: 73630; 80053; 83605; 85025; 87040; 96365; 96366; 96367; 99284; J2543

== ENCOUNTER 2025-06-07 15:20 | Emergency (ER) | payer MEDICARE, SELFPAY ==
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
--- OUTSIDE RECORDS SUMMARY | 2025-06-07 15:38 | XMS_ITS | Clinical Summary ---
Author Organization [facility] Address [address] [place] [address] Phone Care Team Providers Care Food Photographer Name Role Phone Unavailable Primary Care Provider Unavailabl e Allergies No known active allergies Medications * This document contains information received from the source organization and may not represent a complete record from that organization. 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 Resolved Problems Problem Noted Date Diagnosed Date Resolved Date Medication side effect, subsequent encounter 03/13/2024 Bereavement 10/24/2019 03/13/2024 Recurrent depressive disorde r, current episode moderate 10/24/2019 03/13/2024 Alcohol abuse 10/24/2019 03/13/2024 At risk for medication nonadherence 10/24/2019 03/13/2024 Medication monitoring encounter 01/11/2019 03/13/2024 Primary insomnia 01/11/2019 03/13/2024 Anxiety disorder, unspecified 01/11/2019 03/13/2024 Recurrent depressive disorde r, current episode mild 01/11/2019 03/13/2024 Social History Tobacco Use Types Packs/Day Years Used Date Smoking Tobacco: Never Assessed Sex and Gender Information Value Date Recorded Sex Assigned at Not on file Legal Sex Male 8:16 PM EDT Gender Identity Not on file Sexual Orientation Not on file Obstetrics History Plan of Treatment Health Maintenance Due Date Last Done Comments Wellness Exam Medicare 1981 DTaP/TDaP/Td (1 - Tdap) 1997 Hepatitis B Vaccine (1 of 3 - 19+ 3-dose series) 1997 Pneumococcal Vaccine 0-49 (1 of 2 - PCV) 1997 Cologuard 2023 Colon Cancer Screening 2023 Colonoscopy 2023 FIT 2023 Sigmoidoscopy 2023 Virtual Colonography 2023 COVID-19 Vaccine (1 - 2023-2 5 season) 2024 Influenza Vaccine (#1) 2025 Meningococcal B Vaccine Aged Out No l onger eligible based on patient's age to complete this topic Insurance [address] [facility] DUAL ACCESS O D-SNP
--- OUTSIDE RECORDS SUMMARY | 2025-06-07 15:38 | XMS_ITS | Encounter Summary ---
Author Organization [employer] ([place], [place], [place], [place]) Address [address] [place] [address] Care Team Providers Care Director Of Education Name Role Phone Unavailable Primary Care Provider Unavailabl e Encounter Details Date Type Department Care Team (Late st Contact Info) Description 11/27/2018 Transcribed Document [facility] Family Medicine [facility] [place] [address] ProviderAlvarez MD [facility] [place] [address] Social History Tobacco Use Types Packs/Day Years Used Date Smoking Tobacco: Never Assessed Sex and Gender Information Value Date Recorded Sex Assigned at Male 04/07/2022 2:29 PM CDT Legal Sex Male 2:29 PM CDT Gender Identity Male 04/07/2022 2:29 PM CDT Sexual Orientation Not on file documented as of this encounter Miscellaneous Notes * Cerner Conversion Note - Historical ProviderMD - 11/27/2018 4:37 AM WEAPONS OFFICER [employer] ED Discharge Entered On: 11/27/2018 4:38 EST Performed On: 11/27/2018 4:37 EST by Yajaira Bell Hairspring Adjuster Process Patient Disposition : AMA/Elope/LWBS Personal Belongings With Patient : Yes Patient Education Completed : No IV Discontinued : Not applicable Nursing Documentation Completed : Yes Yajaira Bell Rn - 11/27/2018 4:37 EST LWBS/Elopement/AMA Patient Left Prior To Medical Screening : Unseen Asked to Sign LWBS Form : Declines offer to sign form Attempts to Locate Patient : not in lobby for re-assessment Yajaira Bell Rn - 11/27/2018 4:37 EST documented in this encounter Plan of Treatment Not on file documented as of this encounter Visit Diagnoses Not on filedocumented in this encounter
--- OUTSIDE RECORDS SUMMARY | 2025-06-07 15:38 | XMS_ITS | Encounter Summary ---
Author Organization [employer] ([place], [place], [place], [place]) Address [address] [place] [address] Care Team Providers Care Medical Office Secretary Name Role Phone Unavailable Primary Care Provider Unavailabl e Encounter Details Date Type Department Care Team (Late st Contact Info) Description 11/25/2018 Transcribed Document [facility] Family Medicine [address] [place] [address] ProviderAlvarez MD [place] [address] Social History Tobacco Use Types Packs/Day Years Used Date Smoking Tobacco: Never Assessed Sex and Gender Information Value Date Recorded Sex Assigned at Male 04/07/2022 2:29 PM CDT Legal Sex Male 2:29 PM CDT Gender Identity Male 04/07/2022 2:29 PM CDT Sexual Orientation Not on file documented as of this encounter Miscellaneous Notes * Cerner Conversion Note - Historical ProviderMD - 11/25/2018 2:54 PM BUSINESS UNIT LEADER Vital Signs ED Entered On: 11/25/2018 14:54 EST Performed On: 11/25/2018 14:54 EST by Neema Solis Emergency Room Cementer Machine Vital Signs ED Temperature Source : Oral Temperature Mode : Fahrenheit Temperature, Fahrenheit : 98.7 Deg F Clinical Temperature, C : 37.1 Deg C Neema Solis, Emergency Room Cementer Machine - 11/25/2018 14:54 EST Electronically signed by [facility] Conversion Med Aide [place] at 01/27/2023 6:25 PM CDT documented in this encounter Plan of Treatment Not on file documented as of this encounter Visit Diagnoses Not on filedocumented in this encounter
--- OUTSIDE RECORDS SUMMARY | 2025-06-07 15:38 | XMS_ITS | Encounter Summary ---
Author Organization [employer] ([place], [place], [place], [place]) Address [address] [place] [address] Care Team Providers Care Development Team Lead Name Role Phone Unavailable Primary Care Provider Unavailabl e Encounter Details Date Type Department Care Team (Late st Contact Info) Description 11/27/2018 Transcribed Document [facility] Family Medicine [facility] [place] [address] ProviderAlvarez MD [facility] [place] [address] Social History Tobacco Use Types Packs/Day Years Used Date Smoking Tobacco: Never Assessed Sex and Gender Information Value Date Recorded Sex Assigned at Male 04/07/2022 2:29 PM CDT Legal Sex Male 2:29 PM CDT Gender Identity Male 04/07/2022 2:29 PM CDT Sexual Orientation Not on file documented as of this encounter Miscellaneous Notes * Cerner Conversion Note - Alvarez ProviderMD - 11/27/2018 4:38 AM CRUSHER AND BLENDER OPERATOR [address] [place] [address] Patient Information Name: PATRICIO FIGUEROA Age: 38 Years Date of : 1980 Arrival Time: 11/26/2018 23:31:00 Diagnosis Primary Care Physician: TABITHAY, NOT LISTED Provider Information Primary Provider: Secondary Provider: CAROLINA PATRICIO Hansen has been given the following list of patient education materials, prescriptions and follow-up instructions: Follow-up Instructions: Patient Education Materials: Allergies: No Known Allergies Medication Information: Laboratory or Other Results This Visit (last charted value for your 11/26/2018 visit) No Laboratory or Other Results This Visit Medication Comment: Procedures: Laboratory Orders No laboratory orders were placed. Radiology Orders No radiology orders were placed. Cardiology Orders No cardiology orders were placed. This statement is to verify that PATRICIO FIGUEROA was seen at [facility] Emergency Department on ,11/27/2018 04:38:52. This is not a work excuse, if a work excuse was needed it will be in addition to this statement as a separate form. IMPORTANT: The examination and treatment you have received in the Emergency Department has been done to provide an appropriate evaluation and stabilizing treatment on an emergency basis only. Given the limited resources, it is not meant to be a substitute for complete medical care. The follow-up doctor you named will receive a copy of your records and all test reports. IT IS IMPORTANT THAT YOU SCHEDULE A FOLLOW-UP APPOINTMENT AND ARE RE-EVALUATED. You should report any new complaints, symptoms, or remaining problems at that time. IT IS IMPOSSIBLE FOR THE EMERGENCY DEPARTMENT TO RECOGNIZE AND TREAT ALL ELEMENTS OF INJURY OR ILLNESS IN A SINGLE VISIT. If you have been referred to a specialist physician, it means that we believe you may have a condition that requires the expertise of a specialist. KEEP IN MIND THAT THE SPECIALIST HAS HIS/HER OWN OFFICE POLICIES WHICH MAY REQUIRE PROPER INSURANCE OR PAYMENT UP FRONT BEFORE THE SPECIALIST WILL SEE YOU. It is your responsibility to call the specialist physician to make an appointment. We do not have the ability to identify specialists/physicians that work with specific insurance companies. Please be advised that all financial charges or billing practices are determined by that practice, not the hospital. If your insurance company requires that you see a specialist from their approved list, it is your responsibility to contact your insurance company to make those arrangements. It is also your responsibility to follow any other requirements of your insurance company necessary to obtain coverage for claims submitted. If you had special tests, such as EKG???s or X-rays, the interpretation of your tests given to you by the Emergency Dept. Physician is a preliminary report. Some fractures and illnesses fail to show up on preliminary tests. We will review them again within 24-48 hours. We will call you if there are any new suggestions. If your symptoms continue notify your physician. After you leave, you should follow the instructions below. In all events, you may obtain a copy of your Emergency Department visit from Medical Records. Please call to be directed to this department. We will bill your insurance; however, you are responsible today for any co-pay amounts. You will receive a separate bill for any services you may have received including: emergency, radiology, or pathology physicians. Please be sure we have an accurate contact phone number and address, should we need to call you for any reason. CIGARETTE SMOKING: The facts are clear; cigarette smoking will shorten your life. Smoking can cause many illnesses along the way. As a healthcare provider, [facility] recommends that you stop smoking. Assistance with quitting is available by contacting 8-390-LWFZ-NOW. This is a free resource providing counseling, support, and referral. Or you may contact your personal physician. As part of your treatment plan, your physician may have prescribed a limited course of a controlled substance. This medication may be given to help people with moderate or severe pain or for other medical conditions, but there are risks involved with treatment. Common side effects may include nausea, constipation, drowsiness, sweating, itching, dry mouth, and rash. More serious side effects may include cognitive and motor impairment, like problems with thinking, concentrating, alertness, and movement (e.g. slowed reflexes), and driving and operating heavy machinery can be dangerous. It is important for you to talk to your physician if you have these side effects or questions. These controlled substances can produce physical dependence and be habit-forming if taken for an extended period of time, which means that the body has gotten used to them and may experience withdrawal symptoms if they are abruptly stopped. Withdrawal symptoms can include runny nose, sweating, goose bumps, diarrhea, abdominal cramping, rapid heartbeat, difficulty sleeping, and nervousness. The home medications listed are only as accurate as the information you provided. Please continue taking all of your medications prescribed by your Primary Care Provider unless specifically told to change or discontinue the medication. Please direct any questions regarding your home medications to your Primary Care Provider. YOU ARE THE MOST IMPORTANT FACTOR IN YOUR RECOVERY. ?? Follow your instructions carefully ?? Take your medicines as prescribed ?? Most important, see a provider as discussed. If you do not have a provider, we can provide a list of clinics Confidential This message and accompanying documents are covered by Electronic Communications Privacy Act 18 U.S.C. ???Sections 0232-2015,?? and contain information intended for the specified individual(s) only. This information is confidential. If you are not the intended recipient or an agent responsible for delivering it to the intended recipient, you are hereby notified that you have received the document in error and that any review, dissemination, copying, or the taking of any action based on the contents of this information is strictly prohibited. If you have received this communication in error, please notify us immediately by email, and delete the original message. 4 WAYS TO GET AHEAD OF SEPSIS SEPSIS is a MEDICAL EMERGENCY. Time matters! Infections put you and your family at risk for a life-threatening condition called sepsis. Sepsis is the body???s extreme response to an infection. It is life-threatening, and without timely treatment, sepsis can rapidly lead to tissue damage, organ failure, and . Sepsis happens when an infection you already have???in your skin, lungs, urinary tract or somewhere else???triggers a chain reaction throughout your body. 1 PREVENT INFECTIONS Take good care of chronic conditions. Talk to your doctor about getting the recommended vaccines. 2 PRACTICE GOOD HYGIENE Wash your hands frequently. Keep cuts or open sores clean and covered until they are healed. 3 KNOW THE SYMPTOMS Confusion or disorientation Shortness of breath High heart rate Fever, shivering, or feeling very cold Extreme pain or discomfort Clammy or sweaty skin 4 ACT FAST Get medical care IMMEDIATELY if you suspect sepsis or if you have an infection that???s not getting better or is getting worse. To learn more about sepsis and how to prevent infections, visit www.cdc.gov/sepsis. STROKE is an EMERGENCY [employer] ACT F.A.S.T! FACE ?? Facial droop ?? Uneven smile ARM ?? Arm numbness ?? Arm weakness SPEECH ?? Slurred speech ?? Difficulty speaking or understanding TIME ?? Call 911 and get to the hospital immediately Have the ambulance go to the nearest stroke center. STROKE Risk Factors High blood pressure High cholesterol Heart Disease Diabetes Smoking Heavy alcohol use Physical inactivity and obesity Atrial Fibrillation (irregular heartbeat) Family history of stroke Acknowledgment I hereby acknowledge receipt of these instructions and information above. I understand that I have received Emergency Treatment only which is not a substitute for complete medical care and acknowledge that all of my medical problems may not be known, identified, or treated prior to my release. I UNDERSTAND THE NEED TO ARRANGE FOLLOW-UP CARE WITH THE PHYSICIAN INDICATED. I UNDERSTAND THAT I SHOULD CONTACT MY PHYSICIAN IMMEDIATELY OR RETURN TO THE EMERGENCY DEPARTMENT IF MY CONDITION WORSENS, FAILS TO IMPROVE, OR NEW SYMPTOMS APPEAR. Vital Signs B/P PULSE RESP. RATE TEMPERATURE PULSE OX Signature of Emergency Provider Date / Time Signature of Emergency Nurse Date / Time Reminder: Be sure to sign up for the My [facility] patient portal, which gives you 03/05 access to your medical information ??? including these discharge instructions ??? using your computer, smartphone, or tablet. Just go to [employer] to get started. Questions? Call . Acknowledgment I hereby acknowledge receipt of these instructions and information above. I understand that I have received Emergency Treatment only which is not a substitute for complete medical care and acknowledge that all of my medical problems may not be known, identified, or treated prior to my release. I UNDERSTAND THE NEED TO ARRANGE FOLLOW-UP CARE WITH THE PHYSICIAN INDICATED. I UNDERSTAND THAT I SHOULD CONTACT MY PHYSICIAN IMMEDIATELY OR RETURN TO THE EMERGENCY DEPARTMENT IF MY CONDITION WORSENS, FAILS TO IMPROVE, OR NEW SYMPTOMS APPEAR. Signature of Patient / Responsible Person Date / Time Please provide a telephone number where you can be reached. The best time to call is between: It is permissable to leave a message if no answer: Yes____ No____ Nurse Providing Instructions: Emergency Physician: Electronically signed by [facility] Conversion Pulp Cooker Cerner at 01/27/2023 5:59 PM CDT documented in this encounter Plan of Treatment Not on file documented as of this encounter Visit Diagnoses Not on filedocumented in this encounter
--- OUTSIDE RECORDS SUMMARY | 2025-06-07 15:38 | XMS_ITS | Encounter Summary ---
Author Organization [employer] ([place], [place], [place], [place]) Address [address] [place] [address] Care Team Providers Care Digital Content Marketing Manager Name Role Phone Unavailable Primary Care Provider Unavailabl e Encounter Details Date Type Department Care Team (Late st Contact Info) Description 11/25/2018 Transcribed Document [facility] [place] Family Medicine [facility] [place] [address] ProviderAlvarez MD [facility] [place] [address] Social History Tobacco Use Types Packs/Day Years Used Date Smoking Tobacco: Never Assessed Sex and Gender Information Value Date Recorded Sex Assigned at Male 04/07/2022 2:29 PM CDT Legal Sex Male 2:29 PM CDT Gender Identity Male 04/07/2022 2:29 PM CDT Sexual Orientation Not on file documented as of this encounter Miscellaneous Notes * Cerner Conversion Note - Alvarez ProviderMD - 11/25/2018 10:51 AM ACCOUNTS ADMINISTRATOR ED Assessment Entered On: 11/25/2018 11:06 EST Performed On: 11/25/2018 11:02 EST by Bertha Gonzalez Rn ED Quick Look Assessment Level of Consciousness : Alert, Awake Affect/Behavior : Appropriate, Calm Orientation : Oriented x 4 Skin Temperature : Warm Bertha Gonzalez Rn - 11/25/2018 11:02 EST ED General-Functional Assess Information Obtained From : Patient Communication Barrier : None Primary Language : Ivorian Any Spiritual/Cultural Needs or Requests : No Currently in Unsafe Situation : No Bertha Gonzalez Rn - 11/25/2018 11:02 EST ED Psychosocial Assessment Affect/Behavior : Calm Patient Coping : Limited coping Hallucinations Present : None Delusions Present : None Attempts at Self Harm in the Past : No Thoughts of Harming/Killing Yourself : No Do You Have a Support System? : Unable to obtain Does Someone Depend on You for Care? : No Have Arrangements been Made? : No Chronic/Terminal Illness w/Freq Visits : No Hospital/DC Financial Concerns : No Stressors Affecting Hospitalization/DC : No Psychosocial Comment : pt states that he started becoming depressed last night. pt denies SI/HI at this time. pt has hx of schizophrenia and has been without medications x2 days. Bertha Gonzalez Rn - 11/25/2018 11:02 EST Social Habits Smoking Status : Never (less than 100 in lifetime; none in last 30 days) Smokeless Tobacco Status : Never Desires Tobacco Cessation Calc : 0 Bertha Gonzalez Rn - 11/25/2018 11:02 EST Social History (As Of: 11/25/2018 11:06:52 EST) Cardiovascular ASMT, ED Cardiovascular Assessment WDL : WDRajesh with exceptions (Comment: pt c/o generalized chest pain starting last night. pt denies any SOB or cardiac hx at this time. pt denies any pain at this time. pt is stable and in no distress upon assessment. [Bertha Gonzalez Rn - 11/25/2018 11:02 EST] ) Cardiovascular Symptoms : Chest discomfort at rest, Chest discomfort with activity Heart Rhythm : Regular Nail Bed Color : Lead Chest Pain : Yes Bertha Gonzalez Rn - 11/25/2018 11:02 EST Pulses Grid Radial Pulse, Left : 2+ normal Radial Pulse, Right : 2+ normal Bertha Gonzalez Rn - 11/25/2018 11:02 EST Capillary Refill, Left Hand : Less than/Equal to (</=) 2 seconds Capillary Refill, Right Hand : Less than/Equal to (</=) 2 seconds Capillary Refill, Left Foot : Less than/Equal to (</=) 2 seconds Capillary Refill, Right Foot : Less than/Equal to (</=) 2 seconds Clubbing Present : No Bertha Gonzalez Rn - 11/25/2018 11:02 EST Respiratory Respiratory Assessment WDL : Bertha Ladd Rn - 11/25/2018 11:02 EST Neurologic ASMT, ED Neurologic Assessment WDL : Bertha Ladd Rn - 11/25/2018 11:02 EST Electronically signed by [place], [facility] Conversion Marine Equipment Preservation Inspector Cerner at 01/27/2023 6:12 PM CDT documented in this encounter Plan of Treatment Not on file documented as of this encounter Visit Diagnoses Not on filedocumented in this encounter
--- OUTSIDE RECORDS SUMMARY | 2025-06-07 15:38 | XMS_ITS | Encounter Summary ---
Author Organization [employer] ([place], [place], [place], [place]) Address [address] [place] [address] Care Team Providers Care Document Coordinator Name Role Phone Unavailable Primary Care Provider Unavailabl e Encounter Details Date Type Department Care Team (Late st Contact Info) Description 11/27/2018 Transcribed Document [facility] [place] [facility] [place] [address] ProviderAlvarez MD [facility] [place] [address] Social History Tobacco Use Types [...] - Alvarez ProviderMD - 11/27/2018 4:38 AM PERFORMANCE MANAGER [address] [place] [id number] PERSON INFORMATION Name PATRICIO FIGUEROA Age 38 Years 1980 Sex Male Language Setswana PCP PHY, NOT LISTED Marital Status Single Med Service Emergency Medicine Acct# Arrival 11/26/2018 23:31:00 Visit Reason Foot pain-swelling; SWOLLEN LEGS Acuity 4 - Non - Urgent LOS 000 05:07 Depart Date: 11/27/18 04:38 AM Address: [address] [place] [address] Comment: PROVIDER INFORMATION DIAGNOSIS PHYS DOC NOTES VITALS INFORMATION Vital Sign Triage Latest Temp Source Oral Oral Temp Mode Fahrenheit Fahrenheit Temp Fahrenheit 98.7 Deg F 98.7 Deg F Temp Celsius 02 Sat 97 % 97 % Respiratory Rate 15 Breaths/Min 15 Breaths/Min Peripheral Pulse Rate 75 bpm 75 bpm Apical Heart Rate Blood Pressure 137 mmHg / 89 mmHg 137 mmHg / 89 mmHg Comment: MEDICAL INFORMATION Allergy Info: No Known Allergies Medications: Comment: DISCHARGE INFORMATION Discharge Disposition: Left Without Being Seen Discharge Location: PATIENT EDUCATION INFORMATION Instructions: Follow up: Comment: documented in this encounter Plan of Treatment Not on file documented as of this encounter Visit Diagnoses Not on filedocumented in this encounter
--- OUTSIDE RECORDS SUMMARY | 2025-06-07 15:38 | XMS_ITS | Encounter Summary ---
Author Organization [employer] ([place], [place], [place], [place]) Address [address] [place] [address] Care Team Providers Care Marble Ceiling Installer Name Role Phone Unavailable Primary Care Provider Unavailginger e Encounter Details Date Type Department Care Team (Late st Contact Info) Description 11/25/2018 Transcribed Document [facility] [place] Medicine On [facility] of [facility] [place] [address] ProviderAlvarez MD [address] [place] [address] Social History Tobacco Use Types Packs/Day Years Used Date Smoking Tobacco: Never Assessed Sex and Gender Information Value Date Recorded Sex Assigned at Male 04/07/2022 2:29 PM CDT Legal Sex Male 2:29 PM CDT Gender Identity Male 04/07/2022 2:29 PM CDT Sexual Orientation Not on file documented as of this encounter Miscellaneous Notes * Cerner Conversion Note - Alvarez ProviderMD - 11/25/2018 6:47 PM FINANCIAL PLANNING ADVISOR [address] [place] [address] PERSON INFORMATION Name PATRICIO GAY Age 38 Years 1980 Sex Male Language Slovak PCP PHY, NOT LISTED Marital Status Single Med Service Emergency Medicine Acct# Arrival 11/25/2018 10:51:00 Visit Reason Depression; Chest pain; CP,DEPRESSION Acuity 2 - Emergent LOS 000 07:56 Depart Date: 11/25/18 06:47 PM Address: [address] [place] [address] Comment: PROVIDER INFORMATION Provider Role Assigned Unassigned Leena Martínez, STOREROOM SUPERVISOR Nurse 11/25/2018 10:54:11 CONOR PETER PA-C ED Physician 11/25/2018 10:56:31 11/25/2018 18:11:14 JOE COTTON PA ED Physician 11/25/2018 18:11:15 11/25/2018 18:13:49 JOE COTTON PA ED Physician 11/25/2018 18:13:03 DIAGNOSIS Depression; Medication management; PNA (pneumonia) PHYS DOC NOTES VITALS INFORMATION Vital Sign Triage Latest Temp Source Oral Oral Temp Mode Fahrenheit Fahrenheit Temp Fahrenheit 98.7 Deg F 98.7 Deg F Temp Celsius 02 Sat 97 % 94 % Respiratory Rate 16 Breaths/Min 18 Breaths/Min Peripheral Pulse Rate 80 bpm 80 bpm Apical Heart Rate Blood Pressure 129 mmHg / 77 mmHg 105 mmHg / 58 mmHg Comment: MEDICAL INFORMATION Allergy Info: No Known Allergies Medications: Prescription Display azithromycin (azithromycin 250 mg oral tablet) 1 Tab, Oral, Daily, Begin 11/26/18, # 4 Tab, 0 Refill(s) Comment: DISCHARGE INFORMATION Discharge Disposition: Home Discharge Location: PATIENT EDUCATION INFORMATION Instructions: Major Depressive Disorder, Adult; Community-Acquired Pneumonia, Adult Follow up: With: Address: When: [address] [place] [address] [facility] (1) Within 2 to 3 days Comments: Call for follow up appointment Call in the AM Follow-up as instructed Return if condition worsens Symptomatic care is recommended. Take all medications as prescribed and instructed. With: Address: When: [facility] Comments: Please contact the Patient Resource Center at [phone] if you need assistance establishing a primary care physician in the future. Comment: documented in this encounter Plan of Treatment Not on file documented as of this encounter Visit Diagnoses Not on filedocumented in this encounter
--- OUTSIDE RECORDS SUMMARY | 2025-06-07 15:38 | XMS_ITS | Encounter Summary ---
Author Organization [employer] ([place], [place], [place], [place]) Address [address] [place] [address] Care Team Providers Care Multimedia Programmer Name Role Phone Unavailable Primary Care Provider Unavailabl e Encounter Details Date Type Department Care Team (Late st Contact Info) Description 11/25/2018 Transcribed Document [facility] [place] Family Medicine [facility] [place] [address] ProviderAlvarez MD [address] [place] [address] Social History Tobacco Use Types [...] Conversion Note - Alvarez ProviderMD - 11/25/2018 6:08 PM DRAINLAYER Behavioral Health Assessment Note Entered On: 11/25/2018 18:16 EST Performed On: 11/25/2018 18:08 EST by FERNANDO STROUD, KISS MIXER I-TRIAGE Behavioral Health Assessment Note Reason For Behavioral Health Assessment : Pt. is a 38 year old male who presented to ER with chest pains. Pt. reported his mother last week from cancer and he is depressed. Pt. reported he walked from [facility] to [place] over last few days to get away. 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 Pt. denied any current or past SI/HI or any intent of SI or HI. Pt. denied any hallucinations or delusions. Pt. reported he had a therapist and community case manager named Abby at [facility] in [place]. This pt. was staffed with [facility] managed services sales consultant Proj Mgr Dr. Dave who reccomended outpatient services. Pt. was provided resources to [facility] in [place], [facility], [facility], and [facility]. Clinican provided update to and reccomendations to pt who was agreeable. Clinican provided nurse with communication form and reccomendations at 18:00. Are You Currently Suicidal Or Homicidal? : No Suicidal Ideation : No current suicidal thoughts Suicide Plan : No plan Current Admission Precipitated By Suicide Attempt : No Suicide Attempt History : No previous attempt Are You Currently Homicidal : No Do You Have a Plan to Harm Others : No plan Clear Homicidal Target : No Thought Process : Logical Thought Content : Sadness Types of Hallucination(s) : None Appearance : Disheveled Mood : Cooperative, Depressed Affect : Flat General behavior , BH : Cooperative Rate of Speech : Slow Tone of Speech : Soft Orientation : Oriented x 4 Legal Guardian : Yes Legal Status : Voluntary Post-eval Disposition : Outpatient FERNANDO STROUD, KISS MIXER I-TRIAGE - 11/25/2018 18:08 EST Social History (As Of: 11/25/2018 18:16:36 EST) Tobacco: Years of Use: 20. Packs/Tins Daily: 3. (Last Updated: 11/25/2018 16:26:23 EST by CONOR PETER PA-C) Alcohol: Alcohol Use History Yes. Alcohol Use Frequency Rarely. (Last Updated: 11/25/2018 16:26:30 EST by CONOR PETER PA-C) Substance Abuse: Drug Use Hx: No. (Last Updated: 11/25/2018 16:26:35 EST by CONOR PETER PA-C) documented in this encounter Plan of Treatment Not on file documented as of this encounter Visit Diagnoses Not on filedocumented in this encounter
--- OUTSIDE RECORDS SUMMARY | 2025-06-07 15:38 | XMS_ITS | Encounter Summary ---
Author Organization [employer] ([place], [place], [place], [place]) Address [address] [place] [address] Care Team Providers Care Wood Router Hand Name Role Phone Unavailable Primary Care Provider Unavailabl e Encounter Details Date Type Department Care Team (Late st Contact Info) Description 11/25/2018 Transcribed Document [facility] [place] Family Medicine [facility] [place] [address] ProviderAlvarez MD [address] [place] [address] Social History Tobacco Use Types Packs/Day [...] - Alvarez ProviderMD - 11/25/2018 10:51 AM TRIMMER AND BORER MACHINE OPERATOR ED Triage Entered On: 11/25/2018 10:58 EST Performed On: 11/25/2018 10:54 EST by Leena Martínez RN ED Triage Across the Room Triage Date/Time : 11/25/2018 10:54 EST Chief Complaint : Pt presents to the ER via EMS with chest pain. Hx of depression and schizophrenia. Not had psych meds in 2 days. ETOH positive. Drank 2 beers lastnight. Mother recently . Deneis cardiac histroy. Leena Martínez RN - 11/25/2018 10:54 EST DCP GENERIC CODE Tracking Acuity : 2 - Emergent Tracking Group : [facility] ED Leena Martínez RN - 11/25/2018 10:54 EST Mode of Arrival : Ambulatory Transported to ED by : Ambulance/ALS EMS Service : [facility] To Room Via : Stretcher Accompanied By : Unaccompanied ED Vital Signs : Document Height & Weight : Document ED Reason for Visit : Document Leena Martínez RN - 11/25/2018 10:54 EST Infectious Disease History Infectious Disease History : None Fever/Chills Last 48 Hours : No Travel To Regions with Travel Advisories : No Travel Outside [place] Within Last 30 Days : No Contact With Traveler to Advisory Region : No Tuberculosis Symptoms : None Leena Martínez RN - 11/25/2018 10:54 EST Vital Signs ED Temperature Source : Oral Temperature Mode : Fahrenheit Oxygen Therapy Mode : Room air Peripheral Pulse Rate : 80 bpm Respiratory Rate : 16 Breaths/Min Systolic Blood Pressure : 129 mmHg Diastolic Blood Pressure : 77 mmHg Oxygen Saturation : 97 % Leena Martínez RN - 11/25/2018 10:54 EST Diagnosis Control ED (As Of: 11/25/2018 10:58:22 EST) Diagnoses(Active) Chest pain Date: 11/25/2018 ; Diagnosis Type: Reason For Visit ; Confirmation: Complaint of ; Clinical Dx: Chest pain ; Classification: Medical ; Clinical Service: Emergency medicine ; Code: PNED ; Probability: 0 ; Diagnosis Code: [id number] Depression Date: 11/25/2018 ; Diagnosis Type: Reason For Visit ; Confirmation: Complaint of ; Clinical Dx: Depression ; Classification: Medical ; Clinical Service: Emergency medicine ; Code: PNED ; Probability: 0 ; Diagnosis Code: [id number] ED Height and Weight Height Source : Stated Height Entry Format : Winn Height, Feet : 5 ft(Converted to: 152 cm, 60 Inch) Height, Inches : 10 Inch(Converted to: 0 ft 10 Inch, 25.40 cm) Clinical Height : 177.8 cm Weight Source, ED : Critical estimated dosing weight Weight Entry Format : Winn Weight, Pounds : 205 lb Clinical Dosing Weight : 93.18 kg Body Surface Area (BSA) : 2.11 m2 Body Mass Index : 29.5 kg/m2 (HI) [place] Body Weight (IBW) : 72.02 kg Leena Martínez RN - 11/25/2018 10:54 EST documented in this encounter Plan of Treatment Not on file documented as of this encounter Visit Diagnoses Not on filedocumented in this encounter
--- OUTSIDE RECORDS SUMMARY | 2025-06-07 15:38 | XMS_ITS | Encounter Summary ---
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 [place] [address] Business (1) Within 2 to 3 days Comments: Call for follow up appointment Call in the AM Follow-up as instructed Return if condition worsens Symptomatic care is recommended. Take all medications as prescribed and instructed. With: Address: When: [facility] Comments: Please contact the [facility] at [phone] if you need assistance establishing a primary care physician in the future. Patient Education Materials: Major Depressive Disorder, Adult Major depressive disorder (MDD) is a mental health condition. It may also be called clinical depression or unipolar depression. MDD usually causes feelings of sadness, hopelessness, or helplessness. MDD can also cause physical symptoms. It can interfere with work, school, relationships, and other everyday activities. MDD may be mild, moderate, or severe. It may occur once (single episode major depressive disorder) or it may occur multiple times (recurrent major depressive disorder). What are the causes? The exact cause of this condition is not known. MDD is most likely caused by a combination of things, which may include: ??? Genetic factors. These are traits that are passed along from parent to child. ??? Individual factors. Your personality, your behavior, and the way you handle your thoughts and feelings may contribute to MDD. This includes personality traits and behaviors learned from others. ??? Physical factors, such as: ? Differences in the part of your brain that controls emotion. This part of your brain may be different than it is in people who do not have MDD. ? Long-term (chronic) medical or psychiatric illnesses. ??? Social factors. Traumatic experiences or major life changes may play a role in the development of MDD. What increases the risk? This condition is more likely to develop in women. The following factors may also make you more likely to develop MDD: ??? A family history of depression. ??? Troubled family relationships. ??? Abnormally low levels of certain brain chemicals. ??? Traumatic events in childhood, especially abuse or the loss of a parent. ??? Being under a lot of stress, or long-term stress, especially from upsetting life experiences or losses. ??? A history of: ? Chronic physical illness. ? Other mental health disorders. ? Substance abuse. ??? Poor living conditions. ??? Experiencing social exclusion or discrimination on a regular basis. What are the signs or symptoms? The main symptoms of MDD typically include: ??? Constant depressed or irritable mood. ??? Loss of interest in things and activities. MDD symptoms may also include: ??? Sleeping or eating too much or too little. ??? Unexplained weight change. ??? Fatigue or low energy. ??? Feelings of worthlessness or guilt. ??? Difficulty thinking clearly or making decisions. ??? Thoughts of suicide or of harming others. ??? Physical agitation or weakness. ??? Isolation. Severe cases of MDD may also occur with other symptoms, such as: ??? Delusions or hallucinations, in which you imagine things that are not real (psychotic depression). ??? Low-level depression that lasts at least a year (chronic depression or persistent depressive disorder). ??? Extreme sadness and hopelessness (melancholic depression). ??? Trouble speaking and moving (catatonic depression). How is this diagnosed? This condition may be diagnosed based on: ??? Your symptoms. ??? Your medical history, including your mental health history. This may involve tests to evaluate your mental health. You may be asked questions about your lifestyle, including any drug and alcohol use, and how long you have had symptoms of MDD. ??? A physical exam. ??? Blood tests to rule out other conditions. You must have a depressed mood and at least four other MDD symptoms most of the day, nearly every day in the same 2-week timeframe before your health care provider can confirm a diagnosis of MDD. How is this treated? This condition is usually treated by mental health professionals, such as psychologists, psychiatrists, and clinical social workers. You may need more than one type of treatment. Treatment may include: ??? Psychotherapy. This is also called talk therapy or counseling. Types of psychotherapy include: ? Cognitive behavioral therapy (CBT). This type of therapy teaches you to recognize unhealthy feelings, thoughts, and behaviors, and replace them with positive thoughts and actions. ? Interpersonal therapy (IPT). This helps you to improve the way you relate to and communicate with others. ? Family therapy. This treatment includes members of your family. ??? Medicine to treat anxiety and depression, or to help you control certain emotions and behaviors. ??? Lifestyle changes, such as: ? Limiting alcohol and drug use. ? Exercising regularly. ? Getting plenty of sleep. ? Making healthy eating choices. ? Spending more time outdoors. Treatments involving stimulation of the brain can be used in situations with extremely severe symptoms, or when medicine or other therapies do not work over time. These treatments include electroconvulsive therapy, transcranial magnetic stimulation, and vagal nerve stimulation. Follow these instructions at home: Activity ??? Return to your normal activities as told by your health care provider. ??? Exercise regularly and spend time outdoors as told by your health care provider. General instructions ??? Take opov-hlv-lmxidqv and prescription medicines only as told by your health care provider. ??? Do notdrink alcohol. If you drink alcohol, limit your alcohol intake to no more than 1 drink a day for non women and 2 drinks a day for men. One drink equals 12 oz of beer, 5 oz of wine, or 1? oz of hard liquor. Alcohol can affect any antidepressant medicines you are taking. Talk to your health care provider about your alcohol use. ??? Eat a healthy diet and get plenty of sleep. ??? Find activities that you enjoy doing, and make time to do them. ??? Consider joining a support group. Your health care provider may be able to recommend a support group. ??? Keep all follow-up visits as told by your health care provider. This is important. Where to find more information: National [place] on Mental Illness ??? www.jason.org [place]. National [place] of Mental Health ??? www.nimh.nih.gov National Suicide Prevention Lifeline ??? 8-695-973-TALK 8270). This is free, 24-hour help. Contact a health care provider if: ??? Your symptoms get worse. ??? You develop new symptoms. Get help right away if: ??? You self-harm. ??? You have serious thoughts about hurting yourself or others. ??? You see, hear, taste, smell, or feel things that are not present (hallucinate). This information is not intended to replace advice given to you by your health care provider. Make sure you discuss any questions you have with your health care provider. Document Released: 01/22/2014 Document Revised: 06/03/2017 Document Reviewed: 04/07/2017 [employer] Interactive Patient Education ? 2017 [employer] Community-Acquired Pneumonia, Adult Pneumonia is an infection of the lungs. There are different types of pneumonia. One type can develop while a person is in a hospital. A different type, called community-acquired pneumonia, develops in people who are not, or have not recently been, in the hospital or other health care facility. What are the causes? Pneumonia may be caused by bacteria, viruses, or funguses. Community-acquired pneumonia is often caused by Streptococcus pneumonia bacteria. These bacteria are often passed from one person to another by breathing in droplets from the cough or sneeze of an infected person. What increases the risk? The condition is more likely to develop in: ??? People who have?chronic diseases, such as chronic obstructive pulmonary disease (COPD), asthma, congestive heart failure, cystic fibrosis, diabetes, or kidney disease. ??? People who have?early-stage or late-stage HIV. ??? People who have?sickle cell disease. ??? People who have?had their spleen removed (splenectomy). ??? People who have?poor dental hygiene. ??? People who have?medical conditions that increase the risk of breathing in (aspirating) secretions their own mouth and nose. ??? People who have?a weakened immune system (immunocompromised). ??? People who smoke. ??? People who?travel to areas where pneumonia-causing germs commonly exist. ??? People who?are around animal habitats or animals that have pneumonia-causing germs, including birds, bats, rabbits, cats, and farm animals. What are the signs or symptoms? Symptoms of this condition include: ??? A?dry cough. ??? A wet (productive) cough. ??? Fever. ??? Sweating. ??? Chest pain, especially when breathing deeply or coughing. ??? Rapid breathing or difficulty breathing. ??? Shortness of breath. ??? Shaking chills. ??? Fatigue. ??? Muscle aches. How is this diagnosed? Your health care provider will take a medical history and perform a physical exam. You may also have other tests, including: ??? Imaging studies of your chest, including X-rays. ??? Tests to check your blood oxygen level and other blood gases. ??? Other tests on blood, mucus (sputum), fluid around your lungs (pleural fluid), and urine. If your pneumonia is severe, other tests may be done to identify the specific cause of your illness. How is this treated? The type of treatment that you receive depends on many factors, such as the cause of your pneumonia, the medicines you take, and other medical conditions that you have. For most adults, treatment and recovery from pneumonia may occur at home. In some cases, treatment must happen in a hospital. Treatment may include: ??? Antibiotic medicines, if the pneumonia was caused by bacteria. ??? Antiviral medicines, if the pneumonia was caused by a virus. ??? Medicines that are given by mouth or through an IV tube. ??? Oxygen. ??? Respiratory therapy. Although rare, treating severe pneumonia may include: ??? Mechanical ventilation. This is done if you are not breathing well on your own and you cannot maintain a safe blood oxygen level. ??? Thoracentesis. This procedure?removes fluid around one lung or both lungs to help you breathe better. Follow these instructions at home: ??? Take fnqh-cgm-knvtnyj and prescription medicines only as told by your health care provider. ? Only take?cough medicine if you are losing sleep. Understand that cough medicine can prevent your body?s natural ability to remove mucus from your lungs. ? If you were prescribed an antibiotic medicine, take it as told by your health care provider. Do not stop taking the antibiotic even if you start to feel better. ??? Sleep in a semi-upright position at night. Try sleeping in a reclining chair, or place a few pillows under your head. ??? Do notuse tobacco products, including cigarettes, chewing tobacco, and e-cigarettes. If you need help quitting, ask your health care provider. ??? Drink enough water to keep your urine clear or pale yellow. This will help to thin out mucus secretions in your lungs. How is this prevented? There are ways that you can decrease your risk of developing community-acquired pneumonia. Consider getting a pneumococcal vaccine if: ??? You are older than 65 years of age. ??? You are older than 19 years of age and are undergoing cancer treatment, have chronic lung disease, or have other medical conditions that affect your immune system. Ask your health care provider if this applies to you. There are different types and schedules of pneumococcal vaccines. Ask your health care provider which vaccination option is best for you. You may also prevent community-acquired pneumonia if you take these actions: ??? Get an influenza vaccine every year. Ask your health care provider which type of influenza vaccine is best for you. ??? Go to the dentist on a regular basis. ??? Wash your hands often. Use hand web publisher if soap and water are not available. Contact a health care provider if: ??? You have a fever. ??? You are losing sleep because you cannot control your cough with cough medicine. Get help right away if: ??? You have worsening shortness of breath. ??? You have increased chest pain. ??? Your sickness becomes worse, especially if you are an older adult or have a weakened immune system. ??? You cough up blood. This information is not intended to replace advice given to you by your health care provider. Make sure you discuss any questions you have with your health care provider. Document Released: 09/27/2006 Document Revised: 02/04/2017 Document Reviewed: 01/22/2016 [employer] Interactive Patient Education ? 2017 [employer]. Allergies: No Known Allergies Medication Information: Prescription Display azithromycin (azithromycin 250 mg oral tablet) 1 Tab, Oral, Daily, Begin 11/26/18, # 4 Tab, 0 Refill(s) Laboratory or Other Results This Visit (last charted value for your 11/25/2018 visit) Hematology 11/25/18 11:34:00 WBC: 7.9 K/uL -- Normal range between ( 3.6 and 9.5 ) RBC: 4.84 Million/uL -- Normal range between ( 4.20 and 5.70 ) Hct: 45.0 % -- Normal range between ( 40.1 and 51.0 ) Hgb: 14.4 g/dL -- Normal range between ( 13.5 and 17.3 ) Platelet Count: 164 K/uL -- Normal range between ( 163 and 369 ) MCH: 29.8 pg -- Normal range between ( 25.6 and 32.2 ) MCHC: 32.0 Gram/dL -- Normal range between ( 32.2 and 36.5 ) MCV: 93.0 fL -- Normal range between ( 79.0 and 94.8 ) Slide Review: No Eos %: 0.5 % -- Normal range between ( 0.0 and 7.0 ) [place] #: 0.71 K/uL -- Normal range between ( 0.16 and 1.00 ) Eos #: 0.04 x10(3)/uL -- Normal range between ( 0.00 and 0.80 ) [place] %: 9.0 % -- Normal range between ( 3.0 and 9.0 ) Baso %: 0.5 % -- Normal range between ( 0.0 and 1.5 ) Baso #: 0.04 x10(3)/uL -- Normal range between ( 0.00 and 0.20 ) RDW: 14.4 % -- Normal range between ( 11.7 and 14.9 ) Neut %: 74.5 % -- Normal range between ( 34.0 and 71.0 ) Neut #: 5.88 K/uL -- Normal range between ( 1.56 and 6.13 ) Lymph %: 15.2 % -- Normal range between ( 19.3 and 53.1 ) Lymph #: 1.20 x10(3)/uL -- Normal range between ( 1.00 and 3.90 ) MPV: 9.7 fL -- Normal range between ( 9.4 and 12.4 ) IG#: 0.02 x10(3)/uL -- Normal range between ( 0.00 and 0.05 ) IG%: 0.30 % -- Normal range between ( 0.00 and 0.60 ) Urinalysis 11/25/18 17:16:00 Urine Nitrite: Negative Urine Leukocyte Esterase: Negative Urine Appearance: Clear Urine Glucose Dipstick: Negative Urine Blood Dipstick: Negative Urine Urobilinogen Dipstick: 1.0 EU/dL Urine Protein Dipstick: Negative Ur Squamous Epithelial Cells: 0-2 /HPF Urine Color: Siobhan Ur WBC: 0-2 /HPF Urine Ketones Dipstick: 40 Ur Mucous: 2+ Urine pH Dipstick: 5.0 -- Normal range between ( 6.0 and 8.0 ) Ur Hyaline Casts: 2-5 /LPF Urine Bilirubin Dipstick: Negative Urine Specific [place]: 1.020 -- Normal range between ( 1.005 and 1.030 ) Urine Type.: U CleanCatch General Chemistry 11/25/18 11:34:00 Creatinine Level: 0.80 mg/dL -- Normal range between ( 0.70 and 1.30 ) Sodium Level: 139 mmol/L -- Normal range between ( 136 and 146 ) Potassium Level: 4.1 mmol/L -- Normal range between ( 3.5 and 5.1 ) Chloride Level: 107 mmol/L -- Normal range between ( 102 and 112 ) Carbon Dioxide Level: 23 mmol/L -- Normal range between ( 21 and 32 ) Anion Gap: 13 -- Normal range between ( 9 and 20 ) Bilirubin Total: 0.7 mg/dL -- Normal range between ( 0.2 and 1.2 ) A/G Ratio: 1.2 -- Normal range between ( 1.1 and 2.5 ) ALT: 22 Units/Liter -- Normal range between ( 16 and 61 ) AST: 43 Units/Liter -- Normal range between ( 5 and 37 ) Globulin: 3.0 Gram/dL -- Normal range between ( 1.5 and 4.5 ) Alk Phos: 77 Units/Liter -- Normal range between ( 27 and 136 ) Bun/Creatinine: 18.8 -- Normal range between ( 8.0 and 20.0 ) Calcium Level: 8.4 mg/dL -- Normal range between ( 8.4 and 10.1 ) eGFR : >60 mL/min/1.73m2 eGFR NonAfrican: >60 mL/min/1.73m2 Glucose Level: 92 mg/dL -- Normal range between ( 74 and 106 ) Blood Urea Nitrogen: 15 mg/dL -- Normal range between ( 7 and 22 ) Protein Total: 6.7 Gram/dL -- Normal range between ( 6.4 and 8.2 ) Albumin Level: 3.7 Gram/dL -- Normal range between ( 3.4 and 5.0 ) Cardiac Specific Markers 11/25/18 14:21:00 Troponin I Ultra: <0.015 ng/mL -- Normal range between ( 0.015 and 0.045 ) Toxicology 11/25/18 17:16:00 UDS Amp: NEGATIVE UDS Jena: NEGATIVE UDS Benzo: NEGATIVE UDS Reinier: NEGATIVE UDS Opi: NEGATIVE UDS PCP: NEGATIVE UDS TCA: NEGATIVE UDS THC: NEGATIVE UDS pH: 5.0 11/25/18 16:27:00 %Alcohol: .07 Alcohol: 67 mg/dL Diagnostic Radiology 11/25/18 11:44:00 CR Chest 1 Vw Portable: CR Chest 1 Vw Portable Medication Comment: Procedures: Laboratory Orders Name Status ALC Completed AutoDiff Completed C BLOOD Ordered C BLOOD Ordered CBCD Completed CMP Completed TROPIULT Completed TROPIULT Completed UAC Completed UAMICRX Completed UDS2 Completed Radiology Orders Name Status CR Chest 1 Vw Portable Completed Cardiology Orders Name Status ECG Completed ECG Ordered This statement is to verify that PATRICIO FIGUEROA was seen at [facility] Emergency Department on ,11/25/2018 18:47:52. This is not a work excuse, if [...] along the way. As a healthcare provider, [facility] recommends that you stop smoking. Assistance with quitting is available by contacting 2-966-RHIE-NOW. This is a free resource providing counseling, [...] Electronic Communications Privacy Act 18 U.S.C. ???Sections 5805-9879,?? and contain information intended for the specified [...] Be sure to sign up for the [facility] patient portal, which gives you 03/05 access to your medical information ??? including these discharge instructions ??? using your computer, smartphone, or tablet. Just go to [employer] to get started. Questions? Call . Acknowledgment [...] Instructions: Emergency Physician: Electronically signed by [facility] [employer] at 01/27/2023 6:26 PM CDT documented in this encounter Plan of Treatment Not on file documented as of this encounter Visit Diagnoses Not on filedocumented in this encounter
--- OUTSIDE RECORDS SUMMARY | 2025-06-07 15:38 | XMS_ITS | Encounter Summary ---
Author Organization [employer] ([place], [place], [place], [place]) Address [address] [place] [address] Care Team Providers Care Shopper Marketing Manager Name Role Phone Unavailable Primary Care Provider Unavailabl e Encounter Details Date Type Department Care Team (Late st Contact Info) Description 11/25/2018 Transcribed Document [facility] Family Medicine [facility] [place] [address] ProviderAlvarez MD [facility] [place] [address] Social History Tobacco Use Types [...] Conversion Note - Historical ProviderMD - 11/25/2018 1:02 PM TRANSCRIPTION COORDINATOR Patient: PATRICIO GAY Age: 38 years Sex: Male : 1980 Associated Diagnoses: Chest pain; Depression; PNA (pneumonia); Depression; Medication management Author: RADHA AGUILAR PA-C Basic Information Time seen: Date & time 11/25/2018 10:58:00. History source: Patient. Arrival mode: Ambulance. History limitation: Poor historian/hx schizophrenia. Additional information: Patient's physician(s): JOSIAH SALZAAR, Chief Complaint from Nursing Triage Note : Chief Complaint 11/25/2018 10:54 EST Chief Complaint Pt presents to the ER via EMS with chest pain. Hx of depression and schizophrenia. Not had psych meds in 2 days. ETOH positive. Drank 2 beers lastnight. Mother recently . Deneis cardiac histroy. . History of Present Illness The patient presents with chest pain and pt is a 38 yo male who presents to room 10 via [facility] with c/o midline, burning, non-radiating chest pain off/on since 003 today. It lasts 30 minutes at a time; he cannot tell me how many episodes he3 has had; he is pain free now. He also c/o being depressed since his mother 6 days ago. Pt lived with her in [facility] but states now he will have to find somewhere else to live. He denies SI and HI. No hx of SI, depression or suicide attempts. Pt is unkempt and clothing is wet; he states that last night he came to [facility] because I just had to get out of the house. I didn't know what else to do. so, pt has been out in the elements overnight. He states he is out of his psychiatric medicines and told triage he had been out for 2 days but tells me he doesn't know long he has been out of them. He states he takes saphris, propranolol, Lexapro and Melatonin. He reports that they are ready in the pharmacy but he has not picked them up; he cannot say why he has not. Dr. Salazar is his psychiatrist.. Review of Systems Constitutional symptoms: No fever, no chills. Skin symptoms: No rash, Eye symptoms: Vision unchanged. ENMT symptoms: No ear pain, no sore throat, no nasal congestion. Respiratory symptoms: Cough. Cardiovascular symptoms: Chest pain. Gastrointestinal symptoms: No abdominal pain, no nausea, no vomiting. Genitourinary symptoms: No dysuria, no hematuria. Musculoskeletal symptoms: No back pain, no Muscle pain, no Joint pain. Neurologic symptoms: No headache, no dizziness. Health Status Allergies: Allergic Reactions (Selected) No Known Allergies. Medications: (Selected) Inpatient Medications Ordered Normal Saline Flush: 10 mL, IV Push, 5 Times a Day, PRN: IV Use. Past Medical/ Family/ Social History Surgical history: Negative. Family history: No family history items have been selected or recorded.. Social history: Social & Psychosocial Habits Alcohol 11/25/2018 Alcohol Use History, Social Habits Yes Alcohol Use Frequency Rarely Substance Abuse 11/25/2018 Recreational Drug Use History No Tobacco 11/25/2018 Years of Tobacco Use 20 Packs/Tins Daily 3 . Problem list: Active Problems (1) Schizophrenia . Physical Examination Vital Signs Vital Signs/Vital Measures 11/25/2018 10:54 EST Temperature Source Oral Temperature Mode Fahrenheit Peripheral Pulse Rate 80 bpm Respiratory Rate 16 Breaths/Min Systolic Blood Pressure 129 mmHg Diastolic Blood Pressure 77 mmHg Oxygen Saturation 97 % Oxygen Therapy Mode Room air . Measurements 11/25/2018 10:54 EST Height Source Stated Height Entry Format [place] Height/Length, UPPER SORBIAN (ft) 5 ft Height/Length UPPER SORBIAN 10 Inch CLINICALHEIGHT 177.8 cm Accident Body Weight 72.02 kg Weight Source, ED Critical estimated dosing weight Weight Entry Format [place] Weight Swedish lb 205 lb CLINICALWEIGHT 93.18 kg Body Surface Area (BSA) 2.11 m2 Body Mass Index 29.5 kg/m2 HI . Oxygen Saturation 11/25/2018 10:54 EST Oxygen Saturation 97 % . General: Alert, no acute distress, well nourished, calm, unkempt, Wet clothing, Not ill-appearing, Skin: Warm, dry, pink. Head: Normocephalic, atraumatic. Neck: Supple. Eye: Pupils are equal, round and reactive to light, extraocular movements are intact, normal conjunctiva. Ears, nose, mouth and throat: Oral mucosa moist. Cardiovascular: Regular rate and rhythm, No murmur, Normal peripheral perfusion, No edema. Respiratory: Respirations are non-labored, breath sounds are equal, Symmetrical chest wall expansion, Breath sounds: Bilateral, posterior, base(s), crackles present. Gastrointestinal: Soft, Nontender. Neurological: Alert and oriented to person, place, time, and situation, No focal neurological deficit observed. Psychiatric: Cooperative, non-suicidal, Mood and affect: Depressed. Medical Decision Making Differential Diagnosis: Myocardial infarction, unstable angina, angina, anxiety, pneumonia, gastroesophageal reflux disease, dyspnea, congestive heart failure, chronic obstructive pulmonary disease. Rationale: As a shared in transition of care from Radha Aguilar PA-C, patient was to be evaluated by [facility] for inpatient treatment of his depression. If patient was excepted inpatient to continue his therapy for his community acquired pneumonia. Patient did not meet inpatient criteria patient would be prescribed azithromycin and could follow-up outpatient. Patient seen and evaluated by [facility] and they recommended patient was not appropriate for inpatient therapy and provided outpatient resources for the patient. Prescription provided by Radha gAuilar given to patient and he was discharged.Patient is afebrile, nontoxic appearing, vital signs stable and able to maintain baseline O2 sats on room air. Patient is appropriate for discharge home with outpatient follow up to a primary care provider and behavioral health as recommended by [facility]. Patient is agreeable to plan of care of outpatient follow up, provided clear return precautions and demonstrated understanding. . Documents reviewed: Emergency department nurses' notes. Orders Include Previous Orders (Selected) Inpatient Orders Ordered Blood Pressure: Cardiac Monitoring: EKG: Normal Saline Flush: 10 mL, IV Push, 5 Times a Day, PRN: IV Use Pulse Oximetry Continuous Monitoring: Saline Lock Insert: Ordered (Collected) Culture Blood: Culture Blood: Ordered (Dispatched) Drug Screen Urine 2: Urinalysis w Culture if Indicated: Ordered (In-Lab) Alcohol Level: Completed .Automated Differential: CBC w/ Auto Diff: CMP Comprehensive Metabolic Panel: CR Chest 1 Vw Portable: EKG: Rocephin: 1 Gram, 100 mL/Hr, IV Piggyback, 1-Time Troponin I Ultra: Troponin I Ultra: azithromycin: 500 mg, Oral, 1-Time . Electrocardiogram: Time 11/25/2018 10:58:00, rate 78, normal sinus rhythm. Electrocardiogram: Time 11/25/2018 14:21:00, rate 80, normal sinus rhythm. Results review: Lab results : Lab Results 11/25/2018 14:21 EST Troponin I Ultra <0.015 ng/mL 11/25/2018 11:34 EST Sodium Level 139 mmol/L Potassium Level 4.1 mmol/L Chloride Level 107 mmol/L Carbon Dioxide Level 23 mmol/L Anion Gap 13 Glucose Level 92 mg/dL Blood Urea Nitrogen 15 mg/dL Creatinine Level 0.80 mg/dL eGFR >60 mL/min/1.73m2 eGFR NonAfrican >60 mL/min/1.73m2 Bun/Creatinine 18.8 Calcium Level 8.4 mg/dL Protein Total 6.7 Gram/dL Albumin Level 3.7 Gram/dL Globulin 3.0 Gram/dL A/G Ratio 1.2 Bilirubin Total 0.7 mg/dL Alk Phos 77 Units/Liter AST 43 Units/Liter HI ALT 22 Units/Liter Troponin I Ultra <0.015 ng/mL WBC 7.9 K/uL RBC 4.84 Million/uL Hgb 14.4 g/dL Hct 45.0 % MCV 93.0 fL MCH 29.8 pg MCHC 32.0 Gram/dL LOW Platelet Count 164 K/uL MPV 9.7 fL RDW 14.4 % Neut % 74.5 % HI Neut # 5.88 K/uL Lymph % 15.2 % LOW Lymph # 1.20 x10(3)/uL Mcdonough % 9.0 % Mcdonough # 0.71 K/uL Eos % 0.5 % Eos # 0.04 x10(3)/uL Baso % 0.5 % Baso # 0.04 x10(3)/uL Slide Review No IG# 0.02 x10(3)/uL IG% 0.30 % . Chest X-Ray: Radiology Results (Last 48 hours) [id number] -- 11/25/2018 10:51 CR Chest 1 Vw Portable (11/25/2018 11:44) Result: PORTABLE CHEST 11/25/2018 11:30 AM HISTORY: Midsternal chest pain.COMPARISON: None.FINDINGS: The heart is proper size. The mediastinum is unremarkable.There is a right lower lobe opacity. There is no pneumothorax. Theosseous structures are unremarkable. IMPRESSION: Opacity as above, probably secondary to pneumonia.Follow-up to complete resolution recommended.Images reviewed, interpreted, and dictated by Dr. Caprice Robison.Transcribed by Juvencio Zuleta (R).I have personally viewed, interpreted and dictated the examination. Ihave read and agree with the above final transcribed report. . Reexamination/ Reevaluation Notes: pt re-evaluated multiple times while in the ED. Spoke to pt's compCare high risk case manager in [facility] (Abby, ). She states pt will become a jackson of the state as he cannot take care of himself. Pt told her he did have his medications, but she in not sure of this. She will fax a list of meds from [employer]. Called hospitalist ,but pt does not meet admission criteria; case management was called and pt will be evaluated by [facility] for med management.. Impression and Plan Diagnosis Complaint of Chest pain - Reason For Visit, Emergency medicine, Medical Complaint of Depression - Reason For Visit, Emergency medicine, Medical PNA (pneumonia) - Discharge, Emergency medicine, Medical Depression - Discharge, Emergency medicine, Medical Medication management - Discharge, Emergency medicine, Medical Calls-Consults - 1640: Pt has been seen by micah lopez [facility] has been consulted; they will evaluate and disposition; likely admission to [facility] for med management and depression. Pt care turned over to Kwabena Mason pending [facility] management and dispo.. Plan Condition: Stable. Disposition: Medically cleared, Discharged Admit/Transfer/Discharge: Discharge (Order): Start: 11/25/2018 18:17 EST, Discharge to: Home , Patient care transitioned to: Time: 11/25/2018 16:39:00, KWABENA MASON PA. Prescriptions: Prescription Marketing Operations Consultant Pharmacy: azithromycin 250 mg oral tablet (Prescribe): 1 Tab, Oral, Daily, Begin 11/26/18, 4 Tab, 0 Refill(s) . Patient was given the following educational materials: Community-Acquired Pneumonia, Adult, Major Depressive Disorder, Adult. Follow up with: [facility] Please contact the [facility] at [phone] if you need assistance establishing a primary care physician in the future.; [facility] Within 2 to 3 days Call for follow up appointment Call in the AM Follow-up as instructed Return if condition worsens Symptomatic care is recommended. Take all medications as prescribed and instructed. . Counseled: Patient, Regarding diagnosis, Regarding diagnostic results, Regarding treatment plan, Regarding prescription, Patient indicated understanding of instructions. Notes: I certify that the physician social and human services assistant performed the services as delegated. , Dr. Gutierrez. documented in this encounter Plan of Treatment Not on file documented as of this encounter Visit Diagnoses Not on filedocumented in this encounter
--- OUTSIDE RECORDS SUMMARY | 2025-06-07 15:38 | XMS_ITS | Encounter Summary ---
Author Organization [employer] ([place], [place], [place], [place]) Address [address] [place] [address] Care Team Providers Care Piece Hand Name Role Phone Unavailable Primary Care Provider Unavailabl e Encounter Details Date Type Department Care Team (Late st Contact Info) Description 11/25/2018 Transcribed Document [facility] [place] Family Medicine [facility] [place] [address] ProviderAlvarez MD [facility] [place] [address] Social History Tobacco Use Types [...] Conversion Note - Historical ProviderMD - 11/25/2018 6:47 PM WIRELESS CONSTRUCTION MANAGER Electronically signed by Ny, [facility] Conversion Assembler Metal Building Cerner at 01/27/2023 6:11 PM CDT documented in this encounter Plan of Treatment Not on file documented as of this encounter Visit Diagnoses Not on filedocumented in this encounter
--- OUTSIDE RECORDS SUMMARY | 2025-06-07 15:38 | XMS_ITS | Clinical Summary ---
Author Organization [employer] ([place], [place], [place], [place]) Address [address] [place] [address] Care Team Providers Care Medical Receptionist Medical Assistant Name Role Phone Unavailable Primary Care Provider Unavailabl e Social History Tobacco Use Types Packs/Day Years Used Date Smoking Tobacco: Never Assessed Sex and Gender Information Value Date Recorded Sex Assigned at Male 04/07/2022 2:29 PM CDT Legal Sex Male 2:29 PM CDT Gender Identity Male 04/07/2022 2:29 PM CDT Sexual Orientation Not on file Plan of Treatment Not on file
--- OUTSIDE RECORDS SUMMARY | 2025-06-07 15:38 | XMS_ITS | Encounter Summary ---
Author Organization [employer] ([place], [place], [place], [place]) Address [address] [place] [address] Care Team Providers Care Cisco Administrator Name Role Phone Unavailable Primary Care Provider Unavailabl e Encounter Details Date Type Department Care Team (Late st Contact Info) Description 11/25/2018 Transcribed Document [facility] [place] Family Medicine [facility] [place] [address] ProviderAlvarez MD [facility] [place] [address] Social History Tobacco Use Types [...] - Historical ProviderMD - 11/25/2018 6:47 PM HEAD OF HOUSEKEEPING ED Discharge Entered On: 11/25/2018 18:47 EST Performed On: 11/25/2018 18:47 EST by Lois Franco RN Discharge Process Patient Disposition : Discharge Personal Belongings With Patient : Yes Patient Education Completed : Yes IV Discontinued : Yes Nursing Documentation Completed : Yes Lois Franco RN - 11/25/2018 18:47 EST ED Discharge Discharge To : Home with ambulatory/outpatient follow-up Mode Of Departure : Ambulatory, Public transportation Accompanied By : Unaccompanied Discharge Instructions Reviewed With, Opportunity For Questions Given : Patient Prescriptions Given to Patient : Yes Number of Prescriptions Given : 1 Medications Given to Patient : No Lois Franco RN - 11/25/2018 18:47 EST Electronically signed by Ny [facility] Conversion Forest Pathology Teacher Cerner at 01/27/2023 6:12 PM CDT documented in this encounter Plan of Treatment Not on file documented as of this encounter Visit Diagnoses Not on filedocumented in this encounter
--- OUTSIDE RECORDS SUMMARY | 2025-06-07 15:38 | XMS_ITS | Encounter Summary ---
Author Organization [employer] ([place], [place], [place], [place]) Address [address] [place] [address] Care Team Providers Care Slitter Service And Setter Name Role Phone Unavailable Primary Care Provider Unavailabl e Encounter Details Date Type Department Care Team (Late st Contact Info) Description 11/26/2018 Transcribed Document [facility] [place] Family Medicine Counts include 234 beds at the [facility] [place] [address] ProviderAlvarez MD [address] [place] [address] Social History Tobacco Use Types Packs/Day Years Used Date Smoking Tobacco: Never Assessed Sex and Gender Information Value Date Recorded Sex Assigned at Male 04/07/2022 2:29 PM CDT Legal Sex Male 2:29 PM CDT Gender Identity Male 04/07/2022 2:29 PM CDT Sexual Orientation Not on file documented as of this encounter Miscellaneous Notes * Cerner Conversion Note - Alvarez ProviderMD - 11/26/2018 11:31 PM ADOPTION WORKER ED Triage Entered On: 11/26/2018 23:52 EST Performed On: 11/26/2018 23:48 EST by Yajaira Bell Rn ED Triage Across the Room Triage Date/Time : 11/26/2018 23:48 EST Chief Complaint : pt reports out in rain last few days, reports bilateral foot pain with blisters. reports redness on both legs Yajaira Bell Rn - 11/26/2018 23:48 EST DCP GENERIC CODE Tracking Acuity : 4 - Non - Urgent Tracking Group : [facility] ED Yajaira Bell Rn - 11/26/2018 23:48 EST Mode of Arrival : Ambulatory Transported to ED by : Walk in To Room Via : Ambulate Accompanied By : Unaccompanied ED Vital Signs : Document Height & Weight : Document ED Allergies : Document ED Reason for Visit : Document Tetanus Immunization : Unknown Tried to Harm Yourself in the Past? : No Thoughts of Harming/Killing Yourself : No Recent Thoughts of Harming/Killing Others : No Operations Management Trainee Needed : No Yajaira Bell Rn - 11/26/2018 23:48 EST Infectious Disease History Infectious Disease History : None Fever/Chills Last 48 Hours : No Travel To Regions with Travel Advisories : No Travel Outside [place] Within Last 30 Days : No Contact With Traveler to Advisory Region : No Tuberculosis Symptoms : None Yajaira Bell Rn - 11/26/2018 23:48 EST Vital Signs ED Temperature Source : Oral Temperature Mode : Fahrenheit Temperature, Fahrenheit : 98.7 Deg F ED Pain : Yes Clinical Temperature, C : 37.1 Deg C Oxygen Therapy Mode : Room air Peripheral Pulse Rate : 75 bpm Respiratory Rate : 15 Breaths/Min Systolic Blood Pressure : 137 mmHg Diastolic Blood Pressure : 89 mmHg Oxygen Saturation : 97 % Yajaira Bell Rn - 11/26/2018 23:48 EST Allergy (As Of: 11/26/2018 23:52:44 EST) Allergies (Active) No Known Allergies Estimated Onset Date: Unspecified ; Created By: Leena Martínez RN; Reaction Status: Active ; Category: Drug ; Substance: No Known Allergies ; Type: Allergy ; Updated By: Leena Martínez RN; Reviewed Date: 11/26/2018 23:51 EST Diagnosis Control ED (As Of: 11/26/2018 23:52:44 EST) Problems(Active) Schizophrenia (SNOMED CT :50547451 ) Name of Problem: Schizophrenia ; Recorder: CONOR PETER PA; Confirmation: Confirmed ; Classification: Medical ; Code: [id number] ; Contributor System: Meeting[employer]out ; Last Updated: 11/25/2018 16:27 EST ; Life Cycle Date: 11/25/2018 ; Life Cycle Status: Active ; Responsible Provider: CONOR PETER PA; Vocabulary: SNOMED CT Diagnoses(Active) Foot pain-swelling Date: 11/26/2018 ; Diagnosis Type: Reason For Visit ; Confirmation: Complaint of ; Clinical Dx: Foot pain-swelling ; Classification: Medical ; Clinical Service: Non-Specified ; Code: PNED ; Probability: 0 ; Diagnosis Code: [id number] ED Height and Weight Height Source : Stated Height Entry Format : [place] Height, Feet : 5 ft(Converted to: 152 cm, 60 Inch) Height, Inches : 10 Inch(Converted to: 0 ft 10 Inch, 25.40 cm) Clinical Height : 177.8 cm Weight Source, ED : Critical estimated dosing weight Weight Entry Format : [place] Weight, Pounds : 205 lb Clinical Dosing Weight : 93.18 kg Body Surface Area (BSA) : 2.11 m2 Body Mass Index : 29.5 kg/m2 (HI) Ebony Body Weight (IBW) : 72.02 kg Yajaira Bell Rn - 11/26/2018 23:48 EST Pain Assessment Pain Assessment : Initial assessment Pain Scale Used : 0-10 Scale Yajaira Bell Rn - 11/26/2018 23:48 EST Pain Scale Intensity : 9 Yajaira Bell Rn - 11/26/2018 23:48 EST Image 4 - Images currently included in the form version of this document have not been included in the text rendition version of the form. documented in this encounter Plan of Treatment Not on file documented as of this encounter Visit Diagnoses Not on filedocumented in this encounter
--- OUTSIDE RECORDS SUMMARY | 2025-06-07 15:39 | XMS_ITS | Encounter Summary ---
Author Organization [employer] ([place], [place], [place], [place]) Address [address] [place] [address] Care Team Providers Care Clean Up Helper Banquet Name Role Phone Unavailable Primary Care Provider Unavailabl e Encounter Details Date Type Department Care Team (Late st Contact Info) Description 11/25/2018 Transcribed Document [facility] [place] [facility] [place] [address] ProviderAlvarez MD [facility] [place] [address] Social History Tobacco Use Types [...] Conversion Note - Historical ProviderMD - 11/25/2018 6:00 PM ENTERPRISE SECURITY ARCHITECT CR Chest 1 Vw Portable Ordered: 11/25/2018 Modified Reason for Exam: cp 11/25/2018 13:12 11/25/2018 18:00 (Chelsea Barboza PA) Reviewed by Provider, No further action required Report viewed by provider while patient in the emergency department 11/25/2018 14:25 (KAJAL BARBOSA) Provider Review Required documented in this encounter Plan of Treatment Not on file documented as of this encounter Visit Diagnoses Not on filedocumented in this encounter
--- OUTSIDE RECORDS SUMMARY | 2025-06-07 15:39 | XMS_ITS | Encounter Summary ---
Author Organization [employer] ([place], [place], [place], [place]) Address [address] [place] [address] Care Team Providers Care Feather Renovator Name Role Phone Unavailable Primary Care Provider Unavailabl e Encounter Details Date Type Department Care Team (Late st Contact Info) Description 11/25/2018 Transcribed Document [facility] [place] [facility] [place] [address] ProviderAlvarez MD [facility] [place] [address] Social History Tobacco Use Types [...] Conversion Note - Historical ProviderMD - 11/25/2018 4:17 PM COMMUNITY HEALTH PROGRAM COORDINATOR Care Management Assessment/Plan Entered On: 11/25/2018 16:28 EST Performed On: 11/25/2018 16:17 EST by ZACHARY FRANK Manager-Care Elias Care Management Note Anticipated Discharge Date : 11/25/2018 16:27 EST Care Management Note : Pt will be seen and evaluated via [facility]. he agrees for inpt treatment, explaining that he is depressed. If pt does not go to [facility] to the [facility]. rj Documentation Status Complete : Yes ZACHARY FRANK Manager-Care Management - 11/25/2018 16:17 EST Patient History Information Obtained from, Care Mgt : Patient Current Primary Care Physician : pt does not know Medical Durable Power of Customer Care Associate Name : No Emergency Contact #1 : Abby Emergency Contact #1 Emergency Contact #1 Relationship : An [employer] Living Situation : Home Living Situation Contact Information : independent, pt lives alone- Patient Lives With : Alone Mobility Assistance Prior to Admission : Independent Sources of Income : Social Security Frequent Hospitalizations or ED Visits : No Patient History Note : Pt is wanting to go somewhere. Pt does not have an admitting dx. pt is from [facility]----his mother a few weeks ago, and he is suffers from depression. Pt stated, Ya I would go somehere to get help . pt has a manager of case Abby from [employer]. [phone], she made an APS ref. today. She reported that pts mother suddenly and she did not have any provisions for patient before she , and she wdid not know of any next of kin. Pt is alert and oriented. ZACHARY FRANK, Backend Tester-Care Management - 11/25/2018 16:17 EST Electronically signed by Arsalan Alejandra Conversion Commissioned Police Officer Cerner at 01/27/2023 6:13 PM CDT documented in this encounter Plan of Treatment Not on file documented as of this encounter Visit Diagnoses Not on filedocumented in this encounter
--- OUTSIDE RECORDS SUMMARY | 2025-06-07 15:39 | XMS_ITS | Referral Summary ---
Author Organization [employer] ([place], [place], [place], [place]) Address [address] [place] [address] Care Team Providers Care Stumper Feller Name Role Phone Unavailable Primary Care Provider [...]
[2025-06-07 15:41] VITALS: BP 137/78; PULSE 78; RESP 16; TEMP 36.8; O2SAT 97; BMI 23.5
[2025-06-07] MEDS: TET/DIPHTH/PERT-ADULT 0.5ML SYRINGE 0.5 ML IM (15:43)
[2025-06-07] MEDS: ACETAMINOPHEN 325MG TAB 650 MG PO (15:44)
[2025-06-07 15:51] VITALS: BP 140/78; PULSE 80; RESP 20; TEMP 36.7; O2SAT 98
== END 2025-06-07 15:52 ==
PROVIDERS: Emergency Provider Student in an Organized Health Care Education/Training Program
DX: S00.83XA Contusion of other part of head, initial encounter (principal); F10.929 Alcohol use, unspecified with intoxication, unspecified; E03.9 Hypothyroidism, unspecified; F32.A Depression, unspecified; Z23 Encounter for immunization
CPT/HCPCS: 90471; 90715; 99282; 99283